=== PATIENT | female | born 1970 | race Caucasian/White ===

== ENCOUNTER 2016-09-16 08:47 | Emergency (ER) | payer OTHER ==
[2016-09-16] MEDS ORDERED: MORPHINE 4 MG/ML 1ML SYRINGE As Ordered ONE (10:23)
[2016-09-16] MEDS ORDERED: ONDANSETRON 4MG/2ML VIAL (J2405) As Ordered ONE (10:23)
[2016-09-16] MEDS ORDERED: ACETAMINOPHEN 325 MG TAB As Ordered ONE (10:33)
[2016-09-16 10:40] LABS: BASO % 0.5 % (0.0-1.0); EOS # 0.2 K/mm3 (0.0-0.50); LARGE UNSTAINED CELL # 0.1 K/mm3 (0.0-0.4); LARGE UNSTAINED CELL % 1.5 % (0.0-4.0); LYMPH # 1.9 K/mm3 (1.5-4.5); LYMPH % 19.8 % (24.0-44.0); MEAN CORPUSCULAR HEMOGLOBIN 30.4 pg (27.0-33.0); MEAN CORPUSCULAR HGB CONC 32.6 g/dl (32.0-36.5); MEAN CORPUSCULAR VOLUME 93.4 fl (80.0-96.0); MONO # 0.5 K/mm3 (0.0-0.8); MONO % 5.1 % (0.0-5.0); NEUTROPHILS # 6.7 K/mm3 (1.8-7.7); NEUTROPHILS % 71.1 % (36.0-66.0); PLATELET COUNT, AUTOMATED 236 k/mm3 (150-450); RED CELL DISTRIBUTION WIDTH 13.1 % (11.5-14.5); WHITE BLOOD COUNT 9.4 K/mm3 (4.0-10.0)
[2016-09-16 11:01] LABS: ALBUMIN 3.8 GM/DL (3.2-5.2); ALBUMIN/GLOBULIN RATIO 1.03 (1.00-1.93); ALKALINE PHOSPHATASE 84 U/L (45-117); ALT/SGPT 33 U/L (12-78); ANION GAP 7 MEQ/L (8-16); AST/SGOT 23 U/L (15-37); BILIRUBIN,DIRECT < 0.1 MG/DL (0.0-0.2); BILIRUBIN,TOTAL 0.3 MG/DL (0.2-1.0); BLOOD UREA NITROGEN 11 MG/DL (7-18); CALCIUM LEVEL 9.2 MG/DL (8.5-10.1); CARBON DIOXIDE LEVEL 30 MEQ/L (21-32); CHLORIDE LEVEL 106 MEQ/L (98-107); GLOMERULAR FILTRATION RATE > 60.0 (>58); GLUCOSE, FASTING 93 MG/DL (70-105); POTASSIUM SERUM 3.7 MEQ/L (3.5-5.1); SODIUM LEVEL 143 MEQ/L (136-145); TOTAL PROTEIN 7.5 GM/DL (6.4-8.2)
[2016-09-16 11:02] LABS: CALCIUM OXALATE CRYSTALS LARGE
--- NOTE | 2016-09-16 11:10 | REP ---
CT study of the abdomen and pelvis without IV or oral contrast: History: Right flank pain. Hematuria. Findings: Digital business support administrator radiograph shows an unremarkable bowel gas pattern. The lung bases are clear. The liver and the spleen are normal in size and homogeneous in texture. No adrenal lesion is seen. Pancreas and gallbladder are unremarkable. There is no evidence of intrarenal calculus, mass or cyst. There is mild to moderate right-sided hydronephrosis and right hydroureter is seen. This can be traced into the pelvis where there is a obstructing calculus in the distal mid ureter measuring 3 mm in greatest diameter. There is periureteral swelling at the level of the calculus which is at mid pelvis. No bladder or left ureteral calculus is seen. Small and large intestinal bowel loops are unremarkable. A normal appendix is seen. No pelvic mass or adenopathy is seen. No uterine or ovarian abnormality is observed. The uterus is somewhat retroverted. Impression: Moderate right-sided hydronephrosis and hydroureter due to an obstructing 3 mm distal ureteral calculus. Otherwise unremarkable study. Normal appendix seen. Signed by Eric Sneed MD 09/16/2016 12:24 P
--- NOTE | 2016-09-16 11:48 | EDDOCDS ---
Physician Documentation [facility] Name: Violeta Adorno Age: 45 yrs Sex: Female : 1970 Arrival Date: 09/16/2016 Time: 08:47 Bed I6 / Private MD: Disposition: 09/16/16 11:28 Discharged to Home/Self Care. Impression: Urinary tract infection, site not specified, Nausea with vomiting, unspecified, Lower abdominal pain, unspecified - rlq, Calculus of ureter - right. - Condition is Stable. - Discharge Instructions: Kidney Stones, Nausea and Vomiting, Urinary Tract Infection. - Prescriptions for Cipro 500 mg Oral Tablet - take 1 tablet by ORAL route every 12 hours; 14 tablet. Naprosyn 500 mg Oral Tablet - take 1 tablet by ORAL route every 12 hours As needed take with food; 30 tablet. Arcadia 5- 325 mg Oral Tablet - take 1 tablet by ORAL route every 6 hours As needed MDD: 4 tabs; may cause drowsiness. do not take if working/driving/operating machinery; 20 tablet. Reglan 10 mg Oral Tablet - take 1 tablet by ORAL route every 6 hours As needed take 30 minutes before meals and at bedtime; 20 tablet. Flomax 0.4 mg Oral Capsule, Sust. Release 24 hr - take 1 capsule by ORAL route once daily 1/2 hour following the same meal each day; 30 capsule. - Medication Reconciliation, Local Pharmacy Hours form. - Follow up: Emergency Department; When: As needed; Reason: Worsening of conditions. [facility]; When: Call to arrange an appointment; Reason: Recheck today's complaints, Continuance of care, To establish care. Follow up: [facility]; When: Call to arrange an appointment; Reason: Wound/Symptom Recheck, Further diagnostic work-up, Recheck today's complaints, Continuance of care, To establish care. - Problem is new. - Symptoms have improved. Historical: - Allergies: No known drug Allergies; - Home Meds: 1. multivitamin Oral cap daily 2. ibuprofen 200 mg Oral cap 2 caps every 4 hours (Last dose: 09/16/2016 08:00) - PMHx: none; - PSHx: ? kidney surgery as a baby; - Social history: Smoking status: Patient uses tobacco products, heavy tobacco smoker. No barriers to communication noted, The patient speaks fluent Armenian, Speaks appropriately for age. - Family history: Not pertinent. - : The pt / caregiver states he / she is not on anticoagulants. Home medication list is obtained from the patient. - Exposure Risk Screening:: None identified. 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 2 in. (157.48 cm); Pain 4/10; 11:16 BP 139 / 67; Pulse 72; Resp 18; Temp 97.6(O); Pulse Ox 98% on R/A; Pain 8/10; nb2 09:16 Body Mass Index 22.86 (56.70 kg, 157.48 cm) hs1 MDM: 09:23 UCG by Nursing ordered. dt4 09:23 Urinalysis Ordered. EDMS 09:23 Urine Culture Ordered. EDMS 10:04 Ondansetron 4 mg IVP once ordered. dt4 10:04 IV Saline Lock ordered. dt4 10:04 Undress patient appropriately for examination ordered. dt4 10:04 morphine 4 mg IVP once ordered. dt4 10:04 NS 0.9% 500 ml IV at bolus once ordered. dt4 10:05 Basic Metabolic Profile Ordered. EDMS 10:05 CBC with Diff Ordered. EDMS 10:05 Liver Profile Ordered. EDMS 10:05 CRP Ordered. EDMS 10:06 CT ABD & PELVIS: No Contrast Ordered. EDMS 10:06 NOTHING BY MOUTH+DIET ordered. EDMS 10:15 Financial registration complete. lg 10:32 Acetaminophen Tablet 975 mg PO once ordered. dt4 10:46 [facility] Payment Agreement was scanned into [employer] and attached to record. Point of Care Testing: Urine : 10:12 hCG Reading: Negative; Control Reading: Positive; kcs Ranges: Administered Medications: 10:28 Drug: Ondansetron 4 mg [ondansetron HCl 2 mg/mL intravenous solution (2 mL)] Route: kr3 IVP; Site: right antecubital; 10:28 Drug: NS 0.9% 500 ml [sodium chloride 0.9 % intravenous solution] Route: IV; Rate: kr3 bolus; Site: right antecubital; 10:59 Follow up: IV Status: Completed infusion; IV Intake: 500ml kr3 11:40 Follow up: IV Status: Completed infusion rs3 10:32 Not Given (Other Intervention Used; pt driving. ): morphine 4 mg IVP once dt4 10:35 Drug: Acetaminophen 975 mg [acetaminophen 325 mg tablet (3 tabs)] Route: PO; kr3 10:59 Follow up: Response: No significant change. kr3 Signatures: Dispatcher [employer] EDSonia Sánchez, Reg Reg lg Sahra Cavazos RN RN kr3 Sylvia Renner RN RN rs3 Stefanie Harmon RN RN hs1 Jia Aragon PA-C PA-C dt4 The chart was reviewed and I authenticate all verbal orders and agree with the evaluation and treatment provided.Attachments: 10:46 [facility] Payment Agreement lg MTDD
--- NOTE | 2016-09-16 11:49 | EDDOCDS ---
Nurse's Notes [facility] Name: Violeta Adorno Age: 45 yrs Sex: Female : 1970 Arrival Date: 09/16/2016 Time: 08:47 Bed I6 / 28 Private MD: Diagnosis: Urinary tract infection, site not specified;Nausea with vomiting, unspecified;Lower abdominal pain, unspecified-rlq;Calculus of ureter-right Presentation: 09/16 09:11 Presenting complaint: Patient states: noticed blood in urine yesterday. Patient states hs1 cramping today in lower abdomen and now up into rib area. Patient reports pain all on right side. Patient also states has not had menses since June and is probably menopausal. Patient reports trying to see OBGYN and cannot be seen until November. Adult Sepsis Screening: The patient does not have new or worsening altered mentation. Patient's respiratory rate is less than 22. Systolic blood pressure is greater than 100. Patient has a qSOFA score of 0- Negative Sepsis Screen. Suicide/Homicide risk assessment- the patient denies having any suicidal and/or homicidal ideations and does not present with any other emotional, behavioral or mental health complaints. 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 Transition of care: patient was not received from another setting of care. 09:11 Acuity: JOAO Level 3 hs1 09:11 Method Of Arrival: Walkin/Carried/Asstd hs1 Triage Assessment: 09:14 General: Appears in no apparent distress, uncomfortable, Behavior is appropriate for hs1 age, cooperative. Pain: Location: suprapubic area, anterior aspect of right lateral abdomen and right lower quadrant Pain currently is 4 out of 10 on a pain scale. HIV screening NA for this visit Offered previously. GI: Reports cramping, nausea. 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 multivitamin Oral cap daily 2. ibuprofen 200 mg Oral cap 2 caps every 4 hours (Last dose: 09/16/2016 08:00) - PMHx: none; - PSHx: ? kidney surgery as a baby; - Social history: Smoking status: Patient uses tobacco products, heavy tobacco smoker. No barriers to communication noted, The patient speaks fluent Serbian, Speaks appropriately for age. - Family history: Not pertinent. - : The pt / caregiver states he / she is not on anticoagulants. Home medication list is obtained from the patient. - Exposure Risk Screening:: None identified. Screenin:27 Screening information is obtained from the patient. Fall risk: No risks identified. kr3 Assistance ADL's: requires no assistance with activities of daily living. Abuse/DV Screen: The patient / caregiver reports he/she is: not in a situation that causes fear, pain or injury. Nutritional screening: No deficits noted. Advance Directives: Currently, there is no health care proxy. home support is adequate. Assessment: 10:27 General: Appears uncomfortable, Behavior is cooperative. Pain: Location: right flank kr3 and right lower quadrant. Neurological: Level of Consciousness is awake, alert. Respiratory: Respiratory effort is even, unlabored. GI: Reports nausea. : Reports hematuria Denies burning with urination, urinary frequency, urgency. Derm: Skin is normal. 11:02 Reassessment: pain 6/10 with intermittent increases to 10/10. kr3 11:47 Reassessment: Patient appears in no apparent distress at this time. Patient states rs3 feeling better. Patient states symptoms have improved. Vital Signs: 09:16 BP 126 / 80; Pulse 86; Resp 18; Temp 96.8(O); Pulse Ox 98% ; Weight 56.7 kg; Height 5 hs1 ft. 2 in. (157.48 cm); Pain 4/10; 11:16 BP 139 / 67; Pulse 72; Resp 18; Temp 97.6(O); Pulse Ox 98% on R/A; Pain 8/10; nb2 09:16 Body Mass Index 22.86 (56.70 kg, 157.48 cm) 1 Vitals: 09:16 Log In Time: September 16, 2016 at 08:50. hs1 ED Course: 08:49 Patient visited by Zen Vargas. jp5 08:49 Patient moved to Waiting jp5 09:13 Triage Initiated hs1 09:17 Patient moved to Pre RCE hs1 09:51 [facility] dt4 09:51 Vivienne Caraballo MD is Attending Physician. dt4 09:51 Patient visited by Jia Aragon PA-C. dt4 09:51 Patient moved to Triage 2 dwg 10:13 Patient moved to I6 / 28 dwg 10:23 CRP Sent. kr3 10:23 Basic Metabolic Profile Sent. kr3 10:23 CBC with Diff Sent. kr3 10:23 Liver Profile Sent. kr3 10:27 Patient visited by Sahra Cavazos RN. kr3 10:27 The patient / caregiver is instructed regarding the plan of care and ED course. Patient rupesh has correct armband on for positive identification. Placed in gown. Bed in low position. Call light in reach. Side rails up X 1. 10:28 Inserted saline lock: 20 gauge in right antecubital area and blood collected. The kr3 patient tolerated the procedure well. 10:46 [facility] Payment Agreement was scanned into [employer] and attached to record. lg 10:59 Patient visited by Sahra Cavazos RN. kr3 11:02 No procedures done that require assistance. kr3 11:16 Patient visited by Laura Nieves. nb2 11:27 [facility] is Referral Physician. dt4 11:27 [facility] is Referral Physician. dt4 11:45 CT ABD & PELVIS: No Contrast Returned. EDMS Administered Medications: 10:28 Drug: Ondansetron 4 mg [ondansetron HCl 2 mg/mL intravenous solution (2 mL)] Route: kr3 IVP; Site: right antecubital; 10:28 Drug: NS 0.9% 500 ml [sodium chloride 0.9 % intravenous solution] Route: IV; Rate: kr3 bolus; Site: right antecubital; 10:59 Follow up: IV Status: Completed infusion; IV Intake: 500ml kr3 11:40 Follow up: IV Status: Completed infusion rs3 10:32 Not Given (Other Intervention Used; pt driving. ): morphine 4 mg IVP once dt4 10:35 Drug: Acetaminophen 975 mg [acetaminophen 325 mg tablet (3 tabs)] Route: PO; kr3 10:59 Follow up: Response: No significant change. kr3 Point of Care Testing: Urine : 10:12 hCG Reading: Negative; Control Reading: Positive; kcs Ranges: Intake: 10:59 IV: 500.00ml; Total: 500.00ml. kr3 Order Results: Lab Order: Urinalysis; SPEC'M 09/16/16 10:11 Test: APPEARANCE, URINE; Value: CLOUDY; Range: CLEAR; Abnormal: Above high normal; Status: F Test: COLOR, URINE; Value: ALEXX; Range: YELLOW; Status: F Test: PH,URINE; Value: 5.0; Range: 5.0-9.0; Units: UNITS; Status: F Test: SPECIFIC GRAVITY URINE AUTO; Value: 1.027; Range: 1.002-1.035; Status: F Test: PROTEIN, URINE AUTO; Value: 2+; Range: NEGATIVE; Abnormal: Above high normal; Units: mg/dL; Status: F Test: GLUCOSE, URINE (UA) AUTO; Value: NEGATIVE; Range: NEGATIVE; Units: mg/dL; Status: F Test: KETONE, URINE AUTO; Value: TRACE; Range: NEGATIVE; Abnormal: Above high normal; Units: mg/dL; Status: F Test: UROBILINOGEN, URINE AUTO; Value: 0.2; Range: 0.0-2.0; Units: mg/dL; Status: F Test: BILIRUBIN, URINE AUTO; Value: NEGATIVE; Range: NEGATIVE; Status: F Test: NITRITE, URINE AUTO; Value: NEGATIVE; Range: NEGATIVE; Status: F Test: LEUKOCYTE ESTERASE, URINE AUTO; Value: NEGATIVE; Range: NEGATIVE; Status: F Test: BLOOD, URINE BLOOD; Value: 3+; Range: NEGATIVE; Abnormal: Above high normal; Status: F Test: WBC, URINE AUTO; Value: TNTC; Range: 0-3; Abnormal: Above high normal; Units: /HPF; Status: F Test: RBC, URINE AUTO; Value: TNTC; Range: 0-3; Abnormal: Above high normal; Units: /HPF; Status: F Test: BACTERIA, URINE AUTO; Value: NEGATIVE; Range: NEGATIVE; Status: F Test: SQUAMOUS EPITHELIAL CELL UR AU; Value: 3; Range: 0-6; Units: /HPF; Status: F Test: MUCUS, URINE; Value: LARGE; Range: NEGATIVE; Status: F Test: HYALINE CAST, URINE AUTO; Value: 0; Range: 0-1; Units: /LPF; Status: F Test: CALCIUM OXALATE CRYSTALS; Value: LARGE; Range: NONE; Status: F Test: URIC ACID CRYSTALS; Value: SMALL; Range: NONE; Status: F Lab Order: Basic Metabolic Profile; SPEC'M 09/16/16 10:21 Test: GLUCOSE, FASTING; Value: 93; Range: 70-105; Units: MG/DL; Status: F Test: BLOOD UREA NITROGEN; Value: 11; Range: 7-18; Units: MG/DL; Status: F Test: CREATININE FOR GFR; Value: 0.70; Range: 0.55-1.02; Units: MG/DL; Status: F Test: GLOMERULAR FILTRATION RATE; Value: > 60.0; Range: >58; Status: F Test: SODIUM LEVEL; Value: 143; Range: 136-145; Units: MEQ/L; Status: F Test: POTASSIUM SERUM; Value: 3.7; Range: 3.5-5.1; Units: MEQ/L; Status: F Test: CHLORIDE LEVEL; Value: 106; Range: 98-107; Units: MEQ/L; Status: F Test: CARBON DIOXIDE LEVEL; Value: 30; Range: 21-32; Units: MEQ/L; Status: F Test: ANION GAP; Value: 7; Range: 8-16; Abnormal: Below low normal; Units: MEQ/L; Status: F Test: CALCIUM LEVEL; Value: 9.2; Range: 8.5-10.1; Units: MG/DL; Status: F Test Note: ; Units are mL/min/1.73 m2 Chronic Kidney Disease Staging per NKF: Stage I & II GFR >=60 Normal to Mildly Decreased Stage III GFR 30-59 Moderately Decreased Stage IV GFR 15-29 Severely Decreased Stage V GFR <15 Very Little GFR Left ESRD GFR <15 on TUMBLER DYEING MACHINE OPERATOR Lab Order: CBC with Diff; SPEC09/16/16 10:21 Test: WHITE BLOOD COUNT; Value: 9.4; Range: 4.0-10.0; Units: K/mm3; Status: F Test: RED BLOOD COUNT; Value: 4.72; Range: 4.00-5.40; Units: M/mm3; Status: F Test: HEMOGLOBIN; Value: 14.3; Range: 12.0-16.0; Units: g/dl; Status: F Test: HEMATOCRIT; Value: 44.0; Range: 36.0-47.0; Units: %; Status: F Test: MEAN CORPUSCULAR VOLUME; Value: 93.4; Range: 80.0-96.0; Units: fl; Status: F Test: MEAN CORPUSCULAR HEMOGLOBIN; Value: 30.4; Range: 27.0-33.0; Units: pg; Status: F Test: MEAN CORPUSCULAR HGB CONC; Value: 32.6; Range: 32.0-36.5; Units: g/dl; Status: F Test: RED CELL DISTRIBUTION WIDTH; Value: 13.1; Range: 11.5-14.5; Units: %; Status: F Test: PLATELET COUNT, AUTOMATED; Value: 236; Range: 150-450; Units: k/mm3; Status: F Test: NEUTROPHILS %; Value: 71.1; Range: 36.0-66.0; Abnormal: Above high normal; Units: %; Status: F Test: LYMPH %; Value: 19.8; Range: 24.0-44.0; Abnormal: Below low normal; Units: %; Status: F Test: MONO %; Value: 5.1; Range: 0.0-5.0; Abnormal: Above high normal; Units: %; Status: F Test: EOS %; Value: 2.0; Range: 0.0-3.0; Units: %; Status: F Test: BASO %; Value: 0.5; Range: 0.0-1.0; Units: %; Status: F Test: LARGE UNSTAINED CELL %; Value: 1.5; Range: 0.0-4.0; Units: %; Status: F Test: NEUTROPHILS #; Value: 6.7; Range: 1.8-7.7; Units: K/mm3; Status: F Test: LYMPH #; Value: 1.9; Range: 1.5-4.5; Units: K/mm3; Status: F Test: MONO #; Value: 0.5; Range: 0.0-0.8; Units: K/mm3; Status: F Test: EOS #; Value: 0.2; Range: 0.0-0.50; Units: K/mm3; Status: F Test: BASO #; Value: 0.0; Range: 0.0-0.2; Units: K/mm3; Status: F Test: LARGE UNSTAINED CELL #; Value: 0.1; Range: 0.0-0.4; Units: K/mm3; Status: F Lab Order: Liver Profile; SPEC'M 09/16/16 10:21 Test: AST/SGOT; Value: 23; Range: 15-37; Units: U/L; Status: F Test: ALT/SGPT; Value: 33; Range: 12-78; Units: U/L; Status: F Test: ALKALINE PHOSPHATASE; Value: 84; Range: 45-117; Units: U/L; Status: F Test: BILIRUBIN,TOTAL; Value: 0.3; Range: 0.2-1.0; Units: MG/DL; Status: F Test: BILIRUBIN,DIRECT; Value: < 0.1; Range: 0.0-0.2; Units: MG/DL; Status: F Test: TOTAL PROTEIN; Value: 7.5; Range: 6.4-8.2; Units: GM/DL; Status: F Test: ALBUMIN; Value: 3.8; Range: 3.2-5.2; Units: GM/DL; Status: F Test: ALBUMIN/GLOBULIN RATIO; Value: 1.03; Range: 1.00-1.93; Status: F Lab Order: CRP; SPEC'M 09/16/16 10:21 Test: C REACTIVE PROTEIN QUANTITATIV; Value: < 0.30; Range: 0.00-0.30; Units: MG/DL; Status: F Radiology Order: CT ABD & PELVIS: No Contrast Test: CT ABD & PELVIS: No Contrast REASON FOR EXAMINATION: right flank pain, hematuria; CT study of the abdomen and pelvis without IV or oral contrast:; ; History: Right flank pain. Hematuria.; ; Findings: Digital public policy mediator radiograph shows an unremarkable bowel gas pattern. The; lung bases are clear. The liver and the spleen are normal in size and; homogeneous in texture. No adrenal lesion is seen. Pancreas and gallbladder are; unremarkable.; ; There is no evidence of intrarenal calculus, mass or cyst. There is mild to; moderate right-sided hydronephrosis and right hydroureter is seen. This can be; traced into the pelvis where there is a obstructing calculus in the distal mid; ureter measuring 3 mm in greatest diameter. There is periureteral swelling at; the level of the calculus which is at mid pelvis. No bladder or left ureteral; calculus is seen. Small and large intestinal bowel loops are unremarkable. A; normal appendix is seen. No pelvic mass or adenopathy is seen. No uterine or; ovarian abnormality is observed. The uterus is somewhat retroverted.; ; Impression:; ; Moderate right-sided hydronephrosis and hydroureter due to an obstructing 3 mm; distal ureteral calculus. Otherwise unremarkable study. Normal appendix seen.; ; ; ; ; Unreviewed; Outcome: 10:29 CT Study completed. kr3 11:28 Discharge ordered by Provider. dt4 11:41 Discharge Assessment: patient administered narcotics - no. The following High Risk rs3 Discharge criteria are identified: None. Discharged to home ambulatory. Condition: stable. Discharge instructions given to patient, Instructed on discharge instructions, follow up and referral plans. medication usage, Demonstrated understanding of instructions, medications, Patient was not receptive of discharge instructions. Property :Personal belongings accompany Pt. 11:47 Patient left the ED. rs3 Signatures: Dispatcher [employer] EDMS Suad Arthur, RN RN Brandon Payne RN RN Sonia Malhotra, Royal Reg Sahra Cavazos RN RN kr3 Sylvia Renner RN RN rs3 Stefanie Harmon RN RN hs1 Jia Aragon PA-C PASantino dt4 Zen Vargas jp5 Laura Nieves2 MTDD
--- NOTE | 2016-09-18 12:48 | EDDOCDS ---
Nurse's Notes [facility] Name: Violeta Adorno Age: 45 yrs Sex: Female : 1970 Arrival Date: 09/16/2016 Time: 08:47 Bed I6 / 28 Private MD: Diagnosis: Urinary tract infection, site not specified;Nausea with vomiting, unspecified;Lower abdominal pain, unspecified-rlq;Calculus of ureter-right Presentation: 09/16 09:11 Presenting complaint: Patient states: noticed blood in urine yesterday. Patient states hs1 cramping today in lower abdomen and now up into rib area. Patient reports pain all on right side. Patient also states has not had menses since June and is probably menopausal. Patient reports trying to see OBGYN and cannot be seen until November. Adult Sepsis Screening: The patient does not have new or worsening altered mentation. Patient's respiratory rate is less than 22. Systolic blood pressure is greater than 100. Patient has a qSOFA score of 0- Negative Sepsis Screen. Suicide/Homicide risk assessment- the patient denies having any suicidal and/or homicidal ideations and does not present with any other emotional, behavioral or mental health complaints. Status: Patient is not a customer service teller or dependent. Transition of care: patient was not received from another setting of care. 09:11 Acuity: JOAO Level 3 hs1 09:11 Method Of Arrival: Walkin/Carried/Asstd hs1 Triage Assessment: 09:14 General: Appears in no apparent distress, uncomfortable, Behavior is appropriate for hs1 age, cooperative. Pain: Location: suprapubic area, anterior aspect of right lateral abdomen and right lower quadrant Pain currently is 4 out of 10 on a pain scale. HIV screening NA for this visit Offered previously. GI: Reports cramping, nausea. 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 multivitamin Oral cap daily 2. ibuprofen 200 mg Oral cap 2 caps every 4 hours (Last dose: 09/16/2016 08:00) - PMHx: none; - PSHx: ? kidney surgery as a baby; - Social history: Smoking status: Patient uses tobacco products, heavy tobacco smoker. No barriers to communication noted, The patient speaks fluent Albanian, Speaks appropriately for age. - Family history: Not pertinent. - : The pt / caregiver states he / she is not on anticoagulants. Home medication list is obtained from the patient. - Exposure Risk Screening:: None identified. Screenin:27 Screening information is obtained from the patient. Fall risk: No risks identified. kr3 Assistance ADL's: requires no assistance with activities of daily living. Abuse/DV Screen: The patient / caregiver reports he/she is: not in a situation that causes fear, pain or injury. Nutritional screening: No deficits noted. Advance Directives: Currently, there is no health care proxy. home support is adequate. Assessment: 10:27 General: Appears uncomfortable, Behavior is cooperative. Pain: Location: right flank kr3 and right lower quadrant. Neurological: Level of Consciousness is awake, alert. Respiratory: Respiratory effort is even, unlabored. GI: Reports nausea. : Reports hematuria Denies burning with urination, urinary frequency, urgency. Derm: Skin is normal. 11:02 Reassessment: pain 6/10 with intermittent increases to 10/10. kr3 11:47 Reassessment: Patient appears in no apparent distress at this time. Patient states rs3 feeling better. Patient states symptoms have improved. Vital Signs: 09:16 BP 126 / 80; Pulse 86; Resp 18; Temp 96.8(O); Pulse Ox 98% ; Weight 56.7 kg; Height 5 hs1 ft. 2 in. (157.48 cm); Pain 4/10; 11:16 BP 139 / 67; Pulse 72; Resp 18; Temp 97.6(O); Pulse Ox 98% on R/A; Pain 8/10; nb2 09:16 Body Mass Index 22.86 (56.70 kg, 157.48 cm) 1 Vitals: 09:16 Log In Time: September 16, 2016 at 08:50. hs1 ED Course: 08:49 Patient visited by Zen Vargas. jp5 08:49 Patient moved to Waiting jp5 09:13 Triage Initiated hs1 09:17 Patient moved to Pre RCE hs1 09:51 [facility]-C [facility] dt4 09:51 Vivienne Caraballo MD is Attending Physician. dt4 09:51 Patient visited by Jia Aragon PA-C. dt4 09:51 Patient moved to Triage 2 dwg 10:13 Patient moved to I6 / 28 dwg 10:23 CRP Sent. kr3 10:23 Basic Metabolic Profile Sent. kr3 10:23 CBC with Diff Sent. kr3 10:23 Liver Profile Sent. kr3 10:27 Patient visited by Sahra Cavazos RN. kr3 10:27 The patient / caregiver is instructed regarding the plan of care and ED course. Patient rupesh has correct armband on for positive identification. Placed in gown. Bed in low position. Call light in reach. Side rails up X 1. 10:28 Inserted saline lock: 20 gauge in right antecubital area and blood collected. The celestina3 patient tolerated the procedure well. 10:46 [place] [place] was scanned into [employer] and attached to record. lg 10:59 Patient visited by Sahra Cavazos RN. kr3 11:02 No procedures done that require assistance. kr3 11:16 Patient visited by Laura Nieves. nb2 11:27 [facility] is Referral Physician. dt4 11:27 Moe Cheema is Referral Physician. dt4 11:45 CT ABD & PELVIS: No Contrast Returned. EDMS 14:50 T-Sheet-- Draft Copy was scanned into [employer] and attached to record. gb 14:50 Radiology Report was scanned into [employer] and attached to record. gb Administered Medications: 10:28 Drug: Ondansetron 4 mg [ondansetron HCl 2 mg/mL intravenous solution (2 mL)] Route: kr3 IVP; Site: right antecubital; 10:28 Drug: NS 0.9% 500 ml [sodium chloride 0.9 % intravenous solution] Route: IV; Rate: kr3 bolus; Site: right antecubital; 10:59 Follow up: IV Status: Completed infusion; IV Intake: 500ml kr3 11:40 Follow up: IV Status: Completed infusion rs3 10:32 Not Given (Other Intervention Used; pt driving. ): morphine 4 mg IVP once dt4 10:35 Drug: Acetaminophen 975 mg [acetaminophen 325 mg tablet (3 tabs)] Route: PO; kr3 10:59 Follow up: Response: No significant change. kr3 Point of Care Testing: Urine : 10:12 hCG Reading: Negative; Control Reading: Positive; kcs Ranges: Intake: 10:59 IV: 500.00ml; Total: 500.00ml. kr3 Order Results: Lab Order: Urinalysis; SPEC'M 09/16/16 10:11 Test: APPEARANCE, URINE; Value: CLOUDY; Range: CLEAR; Abnormal: Above high normal; Status: F Test: COLOR, URINE; Value: ALEXX; Range: YELLOW; Status: F Test: PH,URINE; Value: 5.0; Range: 5.0-9.0; Units: UNITS; Status: F Test: SPECIFIC GRAVITY URINE AUTO; Value: 1.027; Range: 1.002-1.035; Status: F Test: PROTEIN, URINE AUTO; Value: 2+; Range: NEGATIVE; Abnormal: Above high normal; Units: mg/dL; Status: F Test: GLUCOSE, URINE (UA) AUTO; Value: NEGATIVE; Range: NEGATIVE; Units: mg/dL; Status: F Test: KETONE, URINE AUTO; Value: TRACE; Range: NEGATIVE; Abnormal: Above high normal; Units: mg/dL; Status: F Test: UROBILINOGEN, URINE AUTO; Value: 0.2; Range: 0.0-2.0; Units: mg/dL; Status: F Test: BILIRUBIN, URINE AUTO; Value: NEGATIVE; Range: NEGATIVE; Status: F Test: NITRITE, URINE AUTO; Value: NEGATIVE; Range: NEGATIVE; Status: F Test: LEUKOCYTE ESTERASE, URINE AUTO; Value: NEGATIVE; Range: NEGATIVE; Status: F Test: BLOOD, URINE BLOOD; Value: 3+; Range: NEGATIVE; Abnormal: Above high normal; Status: F Test: WBC, URINE AUTO; Value: TNTC; Range: 0-3; Abnormal: Above high normal; Units: /HPF; Status: F Test: RBC, URINE AUTO; Value: TNTC; Range: 0-3; Abnormal: Above high normal; Units: /HPF; Status: F Test: BACTERIA, URINE AUTO; Value: NEGATIVE; Range: NEGATIVE; Status: F Test: SQUAMOUS EPITHELIAL CELL UR AU; Value: 3; Range: 0-6; Units: /HPF; Status: F Test: MUCUS, URINE; Value: LARGE; Range: NEGATIVE; Status: F Test: HYALINE CAST, URINE AUTO; Value: 0; Range: 0-1; Units: /LPF; Status: F Test: CALCIUM OXALATE CRYSTALS; Value: LARGE; Range: NONE; Status: F Test: URIC ACID CRYSTALS; Value: SMALL; Range: NONE; Status: F Lab Order: Urine Culture; SPEC09/16/16 10:11 Test: URINE CULTURE; Value: <EXTERNAL COMMENT eCWMed> FULL REPORT IN LAB NOTES (eCW and Medent).; Status: F Test: URINE CULTURE; Value: URINE CULTURE RESULT SPECIMEN APPEARS CONTAMINATED; Status: F Lab Order: Basic Metabolic Profile; SPEC'09/16/16 10:21 Test: GLUCOSE, FASTING; Value: 93; Range: 70-105; Units: MG/DL; Status: F Test: BLOOD UREA NITROGEN; Value: 11; Range: 7-18; Units: MG/DL; Status: F Test: CREATININE FOR GFR; Value: 0.70; Range: 0.55-1.02; Units: MG/DL; Status: F Test: GLOMERULAR FILTRATION RATE; Value: > 60.0; Range: >58; Status: F Test: SODIUM LEVEL; Value: 143; Range: 136-145; Units: MEQ/L; Status: F Test: POTASSIUM SERUM; Value: 3.7; Range: 3.5-5.1; Units: MEQ/L; Status: F Test: CHLORIDE LEVEL; Value: 106; Range: 98-107; Units: MEQ/L; Status: F Test: CARBON DIOXIDE LEVEL; Value: 30; Range: 21-32; Units: MEQ/L; Status: F Test: ANION GAP; Value: 7; Range: 8-16; Abnormal: Below low normal; Units: MEQ/L; Status: F Test: CALCIUM LEVEL; Value: 9.2; Range: 8.5-10.1; Units: MG/DL; Status: F Test Note: ; Units are mL/min/1.73 m2 Chronic Kidney Disease Staging per NKF: Stage I & II GFR >=60 Normal to Mildly Decreased Stage III GFR 30-59 Moderately Decreased Stage IV GFR 15-29 Severely Decreased Stage V GFR <15 Very Little GFR Left ESRD GFR <15 on HOT WALKER Lab Order: CBC with Diff; SPEC'09/16/16 10:21 Test: WHITE BLOOD COUNT; Value: 9.4; Range: 4.0-10.0; Units: K/mm3; Status: F Test: RED BLOOD COUNT; Value: 4.72; Range: 4.00-5.40; Units: M/mm3; Status: F Test: HEMOGLOBIN; Value: 14.3; Range: 12.0-16.0; Units: g/dl; Status: F Test: HEMATOCRIT; Value: 44.0; Range: 36.0-47.0; Units: %; Status: F Test: MEAN CORPUSCULAR VOLUME; Value: 93.4; Range: 80.0-96.0; Units: fl; Status: F Test: MEAN CORPUSCULAR HEMOGLOBIN; Value: 30.4; Range: 27.0-33.0; Units: pg; Status: F Test: MEAN CORPUSCULAR HGB CONC; Value: 32.6; Range: 32.0-36.5; Units: g/dl; Status: F Test: RED CELL DISTRIBUTION WIDTH; Value: 13.1; Range: 11.5-14.5; Units: %; Status: F Test: PLATELET COUNT, AUTOMATED; Value: 236; Range: 150-450; Units: k/mm3; Status: F Test: NEUTROPHILS %; Value: 71.1; Range: 36.0-66.0; Abnormal: Above high normal; Units: %; Status: F Test: LYMPH %; Value: 19.8; Range: 24.0-44.0; Abnormal: Below low normal; Units: %; Status: F Test: MONO %; Value: 5.1; Range: 0.0-5.0; Abnormal: Above high normal; Units: %; Status: F Test: EOS %; Value: 2.0; Range: 0.0-3.0; Units: %; Status: F Test: BASO %; Value: 0.5; Range: 0.0-1.0; Units: %; Status: F Test: LARGE UNSTAINED CELL %; Value: 1.5; Range: 0.0-4.0; Units: %; Status: F Test: NEUTROPHILS #; Value: 6.7; Range: 1.8-7.7; Units: K/mm3; Status: F Test: LYMPH #; Value: 1.9; Range: 1.5-4.5; Units: K/mm3; Status: F Test: MONO #; Value: 0.5; Range: 0.0-0.8; Units: K/mm3; Status: F Test: EOS #; Value: 0.2; Range: 0.0-0.50; Units: K/mm3; Status: F Test: BASO #; Value: 0.0; Range: 0.0-0.2; Units: K/mm3; Status: F Test: LARGE UNSTAINED CELL #; Value: 0.1; Range: 0.0-0.4; Units: K/mm3; Status: F Lab Order: Liver Profile; SPEC'M 09/16/16 10:21 Test: AST/SGOT; Value: 23; Range: 15-37; Units: U/L; Status: F Test: ALT/SGPT; Value: 33; Range: 12-78; Units: U/L; Status: F Test: ALKALINE PHOSPHATASE; Value: 84; Range: 45-117; Units: U/L; Status: F Test: BILIRUBIN,TOTAL; Value: 0.3; Range: 0.2-1.0; Units: MG/DL; Status: F Test: BILIRUBIN,DIRECT; Value: < 0.1; Range: 0.0-0.2; Units: MG/DL; Status: F Test: TOTAL PROTEIN; Value: 7.5; Range: 6.4-8.2; Units: GM/DL; Status: F Test: ALBUMIN; Value: 3.8; Range: 3.2-5.2; Units: GM/DL; Status: F Test: ALBUMIN/GLOBULIN RATIO; Value: 1.03; Range: 1.00-1.93; Status: F Lab Order: CRP; SPEC'M 09/16/16 10:21 Test: C REACTIVE PROTEIN QUANTITATIV; Value: < 0.30; Range: 0.00-0.30; Units: MG/DL; Status: F Radiology Order: CT ABD & PELVIS: No Contrast Test: CT ABD & PELVIS: No Contrast REASON FOR EXAMINATION: right flank pain, hematuria; CT study of the abdomen and pelvis without IV or oral contrast:; ; History: Right flank pain. Hematuria.; ; Findings: Digital air bag buffer radiograph shows an unremarkable bowel gas pattern. The; lung bases are clear. The liver and the spleen are normal in size and; homogeneous in texture. No adrenal lesion is seen. Pancreas and gallbladder are; unremarkable.; ; There is no evidence of intrarenal calculus, mass or cyst. There is mild to; moderate right-sided hydronephrosis and right hydroureter is seen. This can be; traced into the pelvis where there is a obstructing calculus in the distal mid; ureter measuring 3 mm in greatest diameter. There is periureteral swelling at; the level of the calculus which is at mid pelvis. No bladder or left ureteral; calculus is seen. Small and large intestinal bowel loops are unremarkable. A; normal appendix is seen. No pelvic mass or adenopathy is seen. No uterine or; ovarian abnormality is observed. The uterus is somewhat retroverted.; ; Impression:; ; Moderate right-sided hydronephrosis and hydroureter due to an obstructing 3 mm; distal ureteral calculus. Otherwise unremarkable study. Normal appendix seen.; ; ; Signed by; Eric Sneed MD 09/16/2016 12:24 P; Outcome: 10:29 CT Study completed. kr3 11:28 Discharge ordered by Provider. dt4 11:41 Discharge Assessment: patient administered narcotics - no. The following High Risk rs3 Discharge criteria are identified: None. Discharged to home ambulatory. Condition: stable. Discharge instructions given to patient, Instructed on discharge instructions, follow up and referral plans. medication usage, Demonstrated understanding of instructions, medications, Patient was not receptive of discharge instructions. Property :Personal belongings accompany Pt. 11:47 Patient left the ED. rs3 Signatures: Dispatcher [employer] EDMS Suad Arthur RN RN kcs Greene, Daniel, RN RN [facility] Martha Noguera, Reg Reg gb Snoia Corbett, Reg Reg lg Sahra CavazosRN RN kr3 Sylvia Renner RN RN rs3 Stefanie Harmon RN RN hs1 Jia Aragon PA-C PASantino dt4 Zen Vargas Nicole nb2 Chart Complete MTDD
--- NOTE | 2016-09-18 12:48 | EDDOCDS ---
Physician Documentation [facility] Name: Violeta Adorno Age: 45 yrs Sex: Female : 1970 Arrival Date: 09/16/2016 Time: 08:47 Bed I6 / Private MD: Disposition: 09/16/16 11:28 Discharged to Home/Self Care. Impression: Urinary tract infection, site not specified, Nausea with vomiting, unspecified, Lower abdominal pain, unspecified - rlq, Calculus of ureter - right. - Condition is Stable. - Discharge Instructions: Kidney Stones, Nausea and Vomiting, Urinary Tract Infection. - Prescriptions for Cipro 500 mg Oral Tablet - take 1 tablet by ORAL route every 12 hours; 14 tablet. Naprosyn 500 mg Oral Tablet - take 1 tablet by ORAL route every 12 hours As needed take with food; 30 tablet. [place] 5- 325 mg Oral Tablet - take 1 tablet by ORAL route every 6 hours As needed MDD: 4 tabs; may cause drowsiness. do not take if working/driving/operating machinery; 20 tablet. Reglan 10 mg Oral Tablet - take 1 tablet by ORAL route every 6 hours As needed take 30 minutes before meals and at bedtime; 20 tablet. Flomax 0.4 mg Oral Capsule, Sust. Release 24 hr - take 1 capsule by ORAL route once daily 1/2 hour following the same meal each day; 30 capsule. - Medication Reconciliation, Local Pharmacy Hours form. - Follow up: Emergency Department; When: As needed; Reason: Worsening of conditions. [facility]; When: Call to arrange an appointment; Reason: Recheck today's complaints, Continuance of care, To establish care. Follow up: [facility]; When: Call to arrange an appointment; Reason: Wound/Symptom Recheck, Further diagnostic work-up, Recheck today's complaints, Continuance of care, To establish care. - Problem is new. - Symptoms have improved. Historical: - Allergies: No known drug Allergies; - Home Meds: 1. multivitamin Oral cap daily 2. ibuprofen 200 mg Oral cap 2 caps every 4 hours (Last dose: 09/16/2016 08:00) - PMHx: none; - PSHx: ? kidney surgery as a baby; - Social history: Smoking status: Patient uses tobacco products, heavy tobacco smoker. No barriers to communication noted, The patient speaks fluent Yoruba, Speaks appropriately for age. - Family history: Not pertinent. - : The pt / caregiver states he / she is not on anticoagulants. Home medication list is obtained from the patient. - Exposure Risk Screening:: None identified. 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 2 in. (157.48 cm); Pain 4/10; 11:16 BP 139 / 67; Pulse 72; Resp 18; Temp 97.6(O); Pulse Ox 98% on R/A; Pain 8/10; nb2 09:16 Body Mass Index 22.86 (56.70 kg, 157.48 cm) hs1 MDM: 09:23 UCG by Nursing ordered. dt4 09:23 Urinalysis Ordered. EDMS 09:23 Urine Culture Ordered. EDMS 10:04 Ondansetron 4 mg IVP once ordered. dt4 10:04 IV Saline Lock ordered. dt4 10:04 Undress patient appropriately for examination ordered. dt4 10:04 morphine 4 mg IVP once ordered. dt4 10:04 NS 0.9% 500 ml IV at bolus once ordered. dt4 10:05 Basic Metabolic Profile Ordered. EDMS 10:05 CBC with Diff Ordered. EDMS 10:05 Liver Profile Ordered. EDMS 10:05 CRP Ordered. EDMS 10:06 CT ABD & PELVIS: No Contrast Ordered. EDMS 10:06 NOTHING BY MOUTH+DIET ordered. EDMS 10:15 Financial registration complete. lg 10:32 Acetaminophen Tablet 975 mg PO once ordered. dt4 10:46 [facility] [place] Payment Agreement was scanned into [email or web address] and attached to record. lg 14:50 T-Sheet-- Draft Copy was scanned into [email or web address] and attached to record. gb 14:50 Radiology Report was scanned into [email or web address] and attached to record. gb Point of Care Testing: Urine : 10:12 hCG Reading: Negative; Control Reading: Positive; kcs Ranges: Administered Medications: 10:28 Drug: Ondansetron 4 mg [ondansetron HCl 2 mg/mL intravenous solution (2 mL)] Route: kr3 IVP; Site: right antecubital; 10:28 Drug: NS 0.9% 500 ml [sodium chloride 0.9 % intravenous solution] Route: IV; Rate: kr3 bolus; Site: right antecubital; 10:59 Follow up: IV Status: Completed infusion; IV Intake: 500ml kr3 11:40 Follow up: IV Status: Completed infusion rs3 10:32 Not Given (Other Intervention Used; pt driving. ): morphine 4 mg IVP once dt4 10:35 Drug: Acetaminophen 975 mg [acetaminophen 325 mg tablet (3 tabs)] Route: PO; kr3 10:59 Follow up: Response: No significant change. kr3 Signatures: Dispatcher [employer] EDMartha Singh, Reg Reg gb Sonia Corbett, Reg Reg lg Sahra Cavazos,RN RN kr3 Sylvia Renner RN RN rs3 Stefanie Harmon RN RN hs1 Jia Aragon PA-C PASantino dt4 The chart was reviewed and I authenticate all verbal orders and agree with the evaluation and treatment provided.Attachments: 10:46 [facility] Payment Agreement lg 14:50 T-Sheet-- Draft Copy gb Chart Complete MTDD
--- NOTE | 2016-09-18 12:48 | EDDOCDS ---
Physician Documentation [facility] Name: Violeta Adorno Age: 45 yrs Sex: Female : 1970 Arrival Date: 09/16/2016 Time: 08:47 Bed I6 / Private MD: Disposition: 09/16/16 11:28 Discharged to Home/Self Care. Impression: Urinary tract infection, site not specified, Nausea with vomiting, unspecified, Lower abdominal pain, unspecified - rlq, Calculus of ureter - right. - Condition is Stable. - Discharge Instructions: Kidney Stones, Nausea and Vomiting, Urinary Tract Infection. - Prescriptions for Cipro 500 mg Oral Tablet - take 1 tablet by ORAL route every 12 hours; 14 tablet. Naprosyn 500 mg Oral Tablet - take 1 tablet by ORAL route every 12 hours As needed take with food; 30 tablet. [place] 5- 325 mg Oral Tablet - take 1 tablet by ORAL route every 6 hours As needed MDD: 4 tabs; may cause drowsiness. do not take if working/driving/operating machinery; 20 tablet. Reglan 10 mg Oral Tablet - take 1 tablet by ORAL route every 6 hours As needed take 30 minutes before meals and at bedtime; 20 tablet. Flomax 0.4 mg Oral Capsule, Sust. Release 24 hr - take 1 capsule by ORAL route once daily 1/2 hour following the same meal each day; 30 capsule. - Medication Reconciliation, Local Pharmacy Hours form. - Follow up: Emergency Department; When: As needed; Reason: Worsening of conditions. [facility]; When: Call to arrange an appointment; Reason: Recheck today's complaints, Continuance of care, To establish care. Follow up: [facility]; When: Call to arrange an appointment; Reason: Wound/Symptom Recheck, Further diagnostic work-up, Recheck today's complaints, Continuance of care, To establish care. - Problem is new. - Symptoms have improved. Historical: - Allergies: No known drug Allergies; - Home Meds: 1. multivitamin Oral cap daily 2. ibuprofen 200 mg Oral cap 2 caps every 4 hours (Last dose: 09/16/2016 08:00) - PMHx: none; - PSHx: ? kidney surgery as a baby; - Social history: Smoking status: Patient uses tobacco products, heavy tobacco smoker. No barriers to communication noted, The patient speaks fluent Luxembourgish, Speaks appropriately for age. - Family history: Not pertinent. - : The pt / caregiver states he / she is not on anticoagulants. Home medication list is obtained from the patient. - Exposure Risk Screening:: None identified. 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 2 in. (157.48 cm); Pain 4/10; 11:16 BP 139 / 67; Pulse 72; Resp 18; Temp 97.6(O); Pulse Ox 98% on R/A; Pain 8/10; nb2 09:16 Body Mass Index 22.86 (56.70 kg, 157.48 cm) hs1 MDM: 09:23 UCG by Nursing ordered. dt4 09:23 Urinalysis Ordered. EDMS 09:23 Urine Culture Ordered. EDMS 10:04 Ondansetron 4 mg IVP once ordered. dt4 10:04 IV Saline Lock ordered. dt4 10:04 Undress patient appropriately for examination ordered. dt4 10:04 morphine 4 mg IVP once ordered. dt4 10:04 NS 0.9% 500 ml IV at bolus once ordered. dt4 10:05 Basic Metabolic Profile Ordered. EDMS 10:05 CBC with Diff Ordered. EDMS 10:05 Liver Profile Ordered. EDMS 10:05 CRP Ordered. EDMS 10:06 CT ABD & PELVIS: No Contrast Ordered. EDMS 10:06 NOTHING BY MOUTH+DIET ordered. EDMS 10:15 Financial registration complete. lg 10:32 Acetaminophen Tablet 975 mg PO once ordered. dt4 10:46 [place] [place] was scanned into [employer] and attached to record. lg 14:50 T-Sheet-- Draft Copy was scanned into [employer] and attached to record. gb 14:50 Radiology Report was scanned into [employer] and attached to record. gb Point of Care Testing: Urine : 10:12 hCG Reading: Negative; Control Reading: Positive; kcs Ranges: Administered Medications: 10:28 Drug: Ondansetron 4 mg [ondansetron HCl 2 mg/mL intravenous solution (2 mL)] Route: kr3 IVP; Site: right antecubital; 10:28 Drug: NS 0.9% 500 ml [sodium chloride 0.9 % intravenous solution] Route: IV; Rate: kr3 bolus; Site: right antecubital; 10:59 Follow up: IV Status: Completed infusion; IV Intake: 500ml kr3 11:40 Follow up: IV Status: Completed infusion rs3 10:32 Not Given (Other Intervention Used; pt driving. ): morphine 4 mg IVP once dt4 10:35 Drug: Acetaminophen 975 mg [acetaminophen 325 mg tablet (3 tabs)] Route: PO; kr3 10:59 Follow up: Response: No significant change. kr3 Signatures: Dispatcher [employer] EDMartha Singh, Reg Reg gb Sonia Corbett, Reg Reg lg Sahra Cavazos,RN RN kr3 Sylvia Renner RN RN rs3 Stefanie Harmon RN RN hs1 Jia Aragon PA-C PASantino dt4 The chart was reviewed and I authenticate all verbal orders and agree with the evaluation and treatment provided.Attachments: 10:46 [facility] Payment Agreement lg 14:50 T-Sheet-- Draft Copy gb Chart Complete MTDD
== END 2016-09-16 11:47 | disposition home or self-care (01) ==
LOC: M ED 08:47
DX: N20.1 Calculus of ureter (principal); N39.0 Urinary tract infection, site not specified; R31.9 Hematuria, unspecified; R11.2 Nausea with vomiting, unspecified; F17.210 Nicotine dependence, cigarettes, uncomplicated
CPT/HCPCS: 36415; 74176; 80048; 80076; 81001; 81025; 85025; 86140; 87086; 96361; 96374; 99284; J2405

== ENCOUNTER 2016-09-26 14:47 | Emergency (ER) | payer OTHER ==
--- NOTE | 2016-09-26 16:36 | REP ---
Clinical: Shortness of breath. Technique: PA and lateral. Comparison: 11/20/2009. Findings: Diffuse coarsened interstitial markings noted throughout the bilateral lung fragoso with subtle opacification at the medial right lung base obscuring the cardiac silhouette. Findings suggest bronchitis with basilar atelectasis and possible right middle lobe infiltrate. Correlation and follow-up. No effusion no pneumothorax cardiac silhouette is without cardiomegaly skeletal structures are intact. Impression: Diffuse coarsened interstitial markings with suspected bibasilar atelectasis and possible small right middle lobe infiltrate. Follow-up to resolution recommended. Signed by Vinnie Gneao MD 09/26/2016 04:27 P
[2016-09-26] MEDS ORDERED: AZITHROMYCIN 250 MG TAB As Ordered ONE (16:56)
--- NOTE | 2016-09-26 17:07 | EDDOCDS ---
Nurse's Notes [facility] Name: Violeta Adorno Age: 46 yrs Sex: Female : 1970 Arrival Date: 09/26/2016 Time: 14:47 Bed I5 / M5 Private MD: NO PRIMARY PHYSICIAN, . Diagnosis: Lobar pneumonia, unspecified organism-possible Right middle lobe pneumnia;Nasal congestion Presentation: 09/26 14:53 Presenting complaint: Patient states: fever, achey stuffy nose for a couple of days srm muscles spasm to mid back last night ( not uncommon). dx with kidney stones and UTI last week. Adult Sepsis Screening: The patient does not have new or worsening altered mentation. Patient's respiratory rate is less than 22. Systolic blood pressure is greater than 100. Patient has a qSOFA score of 0- Negative Sepsis Screen. Suicide/Homicide risk assessment- the patient denies having any suicidal and/or homicidal ideations and does not present with any other emotional, behavioral or mental health complaints. Status: Patient is not a sales service technician or dependent. Transition of care: patient was not received from another setting of care. 14:53 Acuity: JOAO Level 3 srm 14:53 Method Of Arrival: Walkin/Carried/Asstd srm 14:58 Presenting complaint: Patient states: just finished cipro today. srm Triage Assessment: 14:57 General: Appears in no apparent distress, Behavior is appropriate for age, cooperative. srm Pain: Pain currently is 4 out of 10 on a pain scale. HIV screening NA for this visit Offered previously. RATE MARKER: 14:57 LMP N/A - Post-menopause srm Historical: - Allergies: no known allergies; - Home Meds: 1. Flomax 0.4 mg Oral cp24 1 cap once daily 2. Reglan 10 mg Oral tab prn (Last dose: 09/25/2016) 3. Naprosyn 500 mg Oral tab 1 tab every 12 hours prn (Last dose: 09/25/2016) 4. multivitamin Oral cap daily - PMHx: Kidney stones; - PSHx: ? kidney surgery as a baby; - Social history: Smoking status: Patient uses tobacco products, current every day smoker. No barriers to communication noted, The patient speaks fluent Macanese, Speaks appropriately for age. - Family history: Not pertinent. - : The pt / caregiver states he / she is not on anticoagulants. Home medication list is obtained from the patient. - Exposure Risk Screening:: None identified. Screenin:04 Screening information is obtained from the patient. Primary language is Macanese. Fall dls risk: No risks identified. Assistance ADL's: requires no assistance with activities of daily living. Abuse/DV Screen: The patient / caregiver reports he/she is: not in a situation that causes fear, pain or injury. Nutritional screening: No deficits noted. Advance Directives: Currently, there is no health care proxy. There is no active DNR order. There is no living will. There is no Power of Rn Complex Care. home support is adequate. Assessment: 17:04 General: Appears slender, uncomfortable, Behavior is cooperative. Awake, alert, dls oriented. Skin warm and dry. Moves all extremities. Bilateral breath sounds clear. Respirations unlabored. Abdomen soft, non-tender. No apparent distress. The patient / caregiver is instructed regarding the plan of care and ED course. Vital Signs: 14:50 BP 106 / 48; Pulse 83; Resp 18 S; Temp 99.5(O); Pulse Ox 99% on R/A; Weight 54.43 kg gr2 (R); Height 5 ft. 3 in. (160.02 cm) (R); Pain 4/10; 17:03 BP 108 / 52; Pulse 78; Resp 18; Temp 97.7; Pulse Ox 96% on R/A; dls 14:50 Body Mass Index 21.26 (54.43 kg, 160.02 cm) gr2 Vitals: 14:50 Log In Time: September 26, 2016 at 14:50. gr2 ED Course: 14:49 Patient visited by [place]. gr2 14:49 Patient moved to Waiting gr2 14:50 NO PRIMARY PHYSICIAN, . is Private Physician. gr2 14:52 Patient visited by [place]. gr2 14:52 Patient moved to Pre RCE gr2 14:54 Triage Initiated srm 15:25 Patient moved to I5 / M5 bcj 15:30 [facility] le 15:55 Patient visited by Jacqueline Ricci FNP. le 15:55 Patient visited by Jacqueline Ricci FNP. le 16:10 [facility] Payment Agreement was scanned into [employer] and attached to record. gjb 16:25 Urinalysis Sent. pml 16:40 [facility] is Referral Physician. le 17:04 Accompanied by Significant Other, Patient has correct armband on for positive dls identification. Bed in low position. Call light in reach. 17:06 No IV's were initiated during this patient's visit. No procedures done that require dls assistance. Administered Medications: 17:00 Drug: azithromycin 500 mg [azithromycin 250 mg tablet (2 tabs)] Route: PO; dls 17:00 Follow up: Response: Pt left department before re-evaluation is appropriate dls Order Results: Lab Order: Urinalysis; SPEC'M 09/26/16 16:24 Test: APPEARANCE, URINE; Value: CLEAR; Range: CLEAR; Status: F Test: COLOR, URINE; Value: YELLOW; Range: YELLOW; Status: F Test: PH,URINE; Value: 6.0; Range: 5.0-9.0; Units: UNITS; Status: F Test: SPECIFIC GRAVITY URINE AUTO; Value: 1.015; Range: 1.002-1.035; Status: F Test: PROTEIN, URINE AUTO; Value: 1+; Range: NEGATIVE; Abnormal: Above high normal; Units: mg/dL; Status: F Test: GLUCOSE, URINE (UA) AUTO; Value: NEGATIVE; Range: NEGATIVE; Units: mg/dL; Status: F Test: KETONE, URINE AUTO; Value: TRACE; Range: NEGATIVE; Abnormal: Above high normal; Units: mg/dL; Status: F Test: UROBILINOGEN, URINE AUTO; Value: 0.2; Range: 0.0-2.0; Units: mg/dL; Status: F Test: BILIRUBIN, URINE AUTO; Value: NEGATIVE; Range: NEGATIVE; Status: F Test: NITRITE, URINE AUTO; Value: NEGATIVE; Range: NEGATIVE; Status: F Test: LEUKOCYTE ESTERASE, URINE AUTO; Value: NEGATIVE; Range: NEGATIVE; Status: F Test: BLOOD, URINE BLOOD; Value: 2+; Range: NEGATIVE; Abnormal: Above high normal; Status: F Test: WBC, URINE AUTO; Value: 2; Range: 0-3; Units: /HPF; Status: F Test: RBC, URINE AUTO; Value: TNTC; Range: 0-3; Abnormal: Above high normal; Units: /HPF; Status: F Test: BACTERIA, URINE AUTO; Value: NEGATIVE; Range: NEGATIVE; Status: F Test: SQUAMOUS EPITHELIAL CELL UR AU; Value: 0; Range: 0-6; Units: /HPF; Status: F Test: MUCUS, URINE; Value: SMALL; Range: NEGATIVE; Status: F Test: HYALINE CAST, URINE AUTO; Value: 0; Range: 0-1; Units: /LPF; Status: F Outcome: 16:41 Discharge ordered by Provider. le 17:04 The following High Risk Discharge criteria are identified: None. Discharged to home dls ambulatory, with significant other. Condition: stable. Discharge instructions given to patient, Instructed on discharge instructions, follow up and referral plans. medication usage, Demonstrated understanding of instructions, medications, Pt was receptive of discharge instructions/ teaching. No special radiology studies were completed. 17:06 Discharge Assessment: Patient awake, alert and oriented x 3. No cognitive and/or dls functional deficits noted. Patient verbalized understanding of disposition instructions. patient administered narcotics - no. Property sent home with patient. 17:06 Patient left the ED. dls Signatures: Johnny Hernández, RN RN Kamryn Govea, RN RN Arabella Sorenson RN RN dls Westcott, Lisa, [employer] Angelia De Jesus RN RN pml Raymond, Gainslee gr2 Beck, Gabriela gjb MTDValeri
--- NOTE | 2016-09-26 17:07 | EDDOCDS ---
Physician Documentation [facility] Name: Violeta Adorno Age: 46 yrs Sex: Female : 1970 Arrival Date: 09/26/2016 Time: 14:47 Bed I5 / M5 Private MD: NO PRIMARY PHYSICIAN, . Disposition: 09/26/16 16:41 Discharged to Home/Self Care. Impression: Lobar pneumonia, unspecified organism - possible Right middle lobe pneumnia, Nasal congestion. - Condition is Stable. - Discharge Instructions: Pneumonia, Adult. - Prescriptions for Zithromax 250 mg Oral Tablet - take 1 tablet by ORAL route once daily start tomorrow; 4 tablet. Fluticasone 50 mcg/actuation Nasal [place], Suspension - inhale 1 spray by INTRANASAL route 2 times per day; 1 bottle. - Medication Reconciliation, Local Pharmacy Hours form. - [facility]; When: Call to arrange an appointment; Reason: Recheck today's complaints, Continuance of care. - Problem is new. - Symptoms are unchanged. - Notes: Keep hydrated Return to the ED for any further concerns Historical: - Allergies: no known allergies; - Home Meds: 1. Flomax 0.4 mg Oral cp24 1 cap once daily 2. Reglan 10 mg Oral tab prn (Last dose: 09/25/2016) 3. Naprosyn 500 mg Oral tab 1 tab every 12 hours prn (Last dose: 09/25/2016) 4. multivitamin Oral cap daily - PMHx: Kidney stones; - PSHx: ? kidney surgery as a baby; - Social history: Smoking status: Patient uses tobacco products, current every day smoker. No barriers to communication noted, The patient speaks fluent Palauan, Speaks appropriately for age. - Family history: Not pertinent. - : The pt / caregiver states he / she is not on anticoagulants. Home medication list is obtained from the patient. - Exposure Risk Screening:: None identified. 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 3 in. (160.02 cm) (R); Pain 4/10; 17:03 BP 108 / 52; Pulse 78; Resp 18; Temp 97.7; Pulse Ox 96% on R/A; dls 14:50 Body Mass Index 21.26 (54.43 kg, 160.02 cm) gr2 MDM: 16:04 Chest, 2 View (pa\E\lat) Ordered. EDMS 16:08 Financial registration complete. gjb 16:10 [facility] Payment Agreement was scanned into [employer] and attached to record. gjb 16:19 Urinalysis Ordered. EDMS 16:38 Urinalysis Reviewed. le 16:43 azithromycin 500 mg PO once ordered. le Administered Medications: 17:00 Drug: azithromycin 500 mg [azithromycin 250 mg tablet (2 tabs)] Route: PO; dls 17:00 Follow up: Response: Pt left department before re-evaluation is appropriate dls Signatures: Dispatcher [employer] EDKamryn Kenyon RN RN srm Scott, Debra, RN RN dls Westcott, Lisa, FNP FNP le Beck, Gabriela gjb The chart was reviewed and I authenticate all verbal orders and agree with the evaluation and treatment provided.Attachments: 16:10 [facility] Payment Agreement gjb MTDValeri
--- NOTE | 2016-09-28 18:07 | EDDOCDS ---
Nurse's Notes [facility] Name: Violeta Adorno Age: 46 yrs Sex: Female : 1970 Arrival Date: 09/26/2016 Time: 14:47 Bed I5 / M5 Private MD: NO PRIMARY PHYSICIAN, . Diagnosis: Lobar pneumonia, unspecified organism-possible Right middle lobe pneumnia;Nasal congestion Presentation: 09/26 14:53 Presenting complaint: Patient states: fever, achey stuffy nose for a couple of days srm muscles spasm to mid back last night ( not uncommon). dx with kidney stones and UTI last week. Adult Sepsis Screening: The patient does not have new or worsening altered mentation. Patient's respiratory rate is less than 22. Systolic blood pressure is greater than 100. Patient has a qSOFA score of 0- Negative Sepsis Screen. Suicide/Homicide risk assessment- the patient denies having any suicidal and/or homicidal ideations and does not present with any other emotional, behavioral or mental health complaints. Status: Patient is not a server service assistant or dependent. Transition of care: patient was not received from another setting of care. 14:53 Acuity: JOAO Level 3 srm 14:53 Method Of Arrival: Walkin/Carried/Asstd srm 14:58 Presenting complaint: Patient states: just finished cipro today. srm Triage Assessment: 14:57 General: Appears in no apparent distress, Behavior is appropriate for age, cooperative. srm Pain: Pain currently is 4 out of 10 on a pain scale. HIV screening NA for this visit Offered previously. LAY OUT INSPECTOR: 14:57 LMP N/A - Post-menopause srm Historical: - Allergies: no known allergies; - Home Meds: 1. Flomax 0.4 mg Oral cp24 1 cap once daily 2. Reglan 10 mg Oral tab prn (Last dose: 09/25/2016) 3. Naprosyn 500 mg Oral tab 1 tab every 12 hours prn (Last dose: 09/25/2016) 4. multivitamin Oral cap daily - PMHx: Kidney stones; - PSHx: ? kidney surgery as a baby; - Social history: Smoking status: Patient uses tobacco products, current every day smoker. No barriers to communication noted, The patient speaks fluent Indian, Speaks appropriately for age. - Family history: Not pertinent. - : The pt / caregiver states he / she is not on anticoagulants. Home medication list is obtained from the patient. - Exposure Risk Screening:: None identified. Screenin:04 Screening information is obtained from the patient. Primary language is Indian. Fall dls risk: No risks identified. Assistance ADL's: requires no assistance with activities of daily living. Abuse/DV Screen: The patient / caregiver reports he/she is: not in a situation that causes fear, pain or injury. Nutritional screening: No deficits noted. Advance Directives: Currently, there is no health care proxy. There is no active DNR order. There is no living will. There is no Power of Integrated Campaign Manager. home support is adequate. Assessment: 17:04 General: Appears slender, uncomfortable, Behavior is cooperative. Awake, alert, dls oriented. Skin warm and dry. Moves all extremities. Bilateral breath sounds clear. Respirations unlabored. Abdomen soft, non-tender. No apparent distress. The patient / caregiver is instructed regarding the plan of care and ED course. Vital Signs: 14:50 BP 106 / 48; Pulse 83; Resp 18 S; Temp 99.5(O); Pulse Ox 99% on R/A; Weight 54.43 kg gr2 (R); Height 5 ft. 3 in. (160.02 cm) (R); Pain 4/10; 17:03 BP 108 / 52; Pulse 78; Resp 18; Temp 97.7; Pulse Ox 96% on R/A; dls 14:50 Body Mass Index 21.26 (54.43 kg, 160.02 cm) gr2 Vitals: 14:50 Log In Time: September 26, 2016 at 14:50. gr2 ED Course: 14:49 Patient visited by [place]. gr2 14:49 Patient moved to Waiting gr2 14:50 NO PRIMARY PHYSICIAN, . is Private Physician. gr2 14:52 Patient visited by [place]. gr2 14:52 Patient moved to Pre RCE gr2 14:54 Triage Initiated srm 15:25 Patient moved to I5 / M5 bcj 15:30 Jacqueline Ricci FNP [facility] le 15:55 Patient visited by Jacqueline Ricci FNP. le 15:55 Patient visited by Jacqueline Ricci FNP. le 16:10 [facility] Payment Agreement was scanned into [employer] and attached to record. gjb 16:25 Urinalysis Sent. pml 16:40 [facility] is Referral Physician. le 17:04 Accompanied by Significant Other, Patient has correct armband on for positive dls identification. Bed in low position. Call light in reach. 17:06 No IV's were initiated during this patient's visit. No procedures done that require dls assistance. 17:09 Chest, 2 View (pa\E\lat) Returned. EDMS 09/27 11:44 T-Sheet-- Draft Copy was scanned into [employer] and attached to record. gb Administered Medications: 09/26 17:00 Drug: azithromycin 500 mg [azithromycin 250 mg tablet (2 tabs)] Route: PO; dls 17:00 Follow up: Response: Pt left department before re-evaluation is appropriate dls Order Results: Lab Order: Urinalysis; SPEC'M 09/26/16 16:24 Test: APPEARANCE, URINE; Value: CLEAR; Range: CLEAR; Status: F Test: COLOR, URINE; Value: YELLOW; Range: YELLOW; Status: F Test: PH,URINE; Value: 6.0; Range: 5.0-9.0; Units: UNITS; Status: F Test: SPECIFIC GRAVITY URINE AUTO; Value: 1.015; Range: 1.002-1.035; Status: F Test: PROTEIN, URINE AUTO; Value: 1+; Range: NEGATIVE; Abnormal: Above high normal; Units: mg/dL; Status: F Test: GLUCOSE, URINE (UA) AUTO; Value: NEGATIVE; Range: NEGATIVE; Units: mg/dL; Status: F Test: KETONE, URINE AUTO; Value: TRACE; Range: NEGATIVE; Abnormal: Above high normal; Units: mg/dL; Status: F Test: UROBILINOGEN, URINE AUTO; Value: 0.2; Range: 0.0-2.0; Units: mg/dL; Status: F Test: BILIRUBIN, URINE AUTO; Value: NEGATIVE; Range: NEGATIVE; Status: F Test: NITRITE, URINE AUTO; Value: NEGATIVE; Range: NEGATIVE; Status: F Test: LEUKOCYTE ESTERASE, URINE AUTO; Value: NEGATIVE; Range: NEGATIVE; Status: F Test: BLOOD, URINE BLOOD; Value: 2+; Range: NEGATIVE; Abnormal: Above high normal; Status: F Test: WBC, URINE AUTO; Value: 2; Range: 0-3; Units: /HPF; Status: F Test: RBC, URINE AUTO; Value: TNTC; Range: 0-3; Abnormal: Above high normal; Units: /HPF; Status: F Test: BACTERIA, URINE AUTO; Value: NEGATIVE; Range: NEGATIVE; Status: F Test: SQUAMOUS EPITHELIAL CELL UR AU; Value: 0; Range: 0-6; Units: /HPF; Status: F Test: MUCUS, URINE; Value: SMALL; Range: NEGATIVE; Status: F Test: HYALINE CAST, URINE AUTO; Value: 0; Range: 0-1; Units: /LPF; Status: F Radiology Order: Chest, 2 View (pa\E\lat) Test: Chest, 2 View (pa\E\lat) REASON FOR EXAMINATION: Shortness of Breath; Clinical: Shortness of breath.; ; Technique: PA and lateral.; ; Comparison: 11/20/2009.; ; Findings:; Diffuse coarsened interstitial markings noted throughout the bilateral lung; fragoso with subtle opacification at the medial right lung base obscuring the; cardiac silhouette. Findings suggest bronchitis with basilar atelectasis and; possible right middle lobe infiltrate. Correlation and follow-up. No effusion; no pneumothorax cardiac silhouette is without cardiomegaly skeletal structures; are intact.; ; Impression:; Diffuse coarsened interstitial markings with suspected bibasilar atelectasis and; possible small right middle lobe infiltrate. Follow-up to resolution; recommended.; ; ; Signed by; Vinnie Genao MD 09/26/2016 04:27 P; Outcome: 16:41 Discharge ordered by Provider. 17:04 The following High Risk Discharge criteria are identified: None. Discharged to home dls ambulatory, with significant other. Condition: stable. Discharge instructions given to patient, Instructed on discharge instructions, follow up and referral plans. medication usage, Demonstrated understanding of instructions, medications, Pt was receptive of discharge instructions/ teaching. No special radiology studies were completed. 17:06 Discharge Assessment: Patient awake, alert and oriented x 3. No cognitive and/or dls functional deficits noted. Patient verbalized understanding of disposition instructions. patient administered narcotics - no. Property sent home with patient. 17:06 Patient left the ED. dls Signatures: Dispatcher [facility] Johnny Hernández, Kamryn Landaverde RN, RN RN Arabella Sorenson RN RN dls Chuckie, Martha, Reg Reg gb Jacqueline Ricci, OUTBOUND SALES CONSULTANT OUTBOUND SALES CONSULTANT Angelia Hinton RN RN [place] Gabriela gjb Chart Complete MTDD
--- NOTE | 2016-09-28 18:07 | EDDOCDS ---
Physician Documentation [facility] Name: Violeta Adorno Age: 46 yrs Sex: Female : 1970 Arrival Date: 09/26/2016 Time: 14:47 Bed I5 / M5 Private MD: NO PRIMARY PHYSICIAN, . Disposition: 09/26/16 16:41 Discharged to Home/Self Care. Impression: Lobar pneumonia, unspecified organism - possible Right middle lobe pneumnia, Nasal congestion. - Condition is Stable. - Discharge Instructions: Pneumonia, Adult. - Prescriptions for Zithromax 250 mg Oral Tablet - take 1 tablet by ORAL route once daily start tomorrow; 4 tablet. Fluticasone 50 mcg/actuation Nasal [place], Suspension - inhale 1 spray by INTRANASAL route 2 times per day; 1 bottle. - Medication Reconciliation, Local Pharmacy Hours form. - [facility]; When: Call to arrange an appointment; Reason: Recheck today's complaints, Continuance of care. - Problem is new. - Symptoms are unchanged. - Notes: Keep hydrated Return to the ED for any further concerns Historical: - Allergies: no known allergies; - Home Meds: 1. Flomax 0.4 mg Oral cp24 1 cap once daily 2. Reglan 10 mg Oral tab prn (Last dose: 09/25/2016) 3. Naprosyn 500 mg Oral tab 1 tab every 12 hours prn (Last dose: 09/25/2016) 4. multivitamin Oral cap daily - PMHx: Kidney stones; - PSHx: ? kidney surgery as a baby; - Social history: Smoking status: Patient uses tobacco products, current every day smoker. No barriers to communication noted, The patient speaks fluent [place], Speaks appropriately for age. - Family history: Not pertinent. - : The pt / caregiver states he / she is not on anticoagulants. Home medication list is obtained from the patient. - Exposure Risk Screening:: None identified. 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 3 in. (160.02 cm) (R); Pain 4/10; 17:03 BP 108 / 52; Pulse 78; Resp 18; Temp 97.7; Pulse Ox 96% on R/A; dls 14:50 Body Mass Index 21.26 (54.43 kg, 160.02 cm) gr2 MDM: 16:04 Chest, 2 View (pa\E\lat) Ordered. EDMS 16:08 Financial registration complete. gjb 16:10 [facility] Payment Agreement was scanned into [employer] and attached to record. gjb 16:19 Urinalysis Ordered. EDMS 16:38 Urinalysis Reviewed. le 16:43 azithromycin 500 mg PO once ordered. le 09/27 11:44 T-Sheet-- Draft Copy was scanned into [employer] and attached to record. gb Administered Medications: 09/26 17:00 Drug: azithromycin 500 mg [azithromycin 250 mg tablet (2 tabs)] Route: PO; dls 17:00 Follow up: Response: Pt left department before re-evaluation is appropriate dls Signatures: Dispatcher [employer] EDKamryn Kenyon RN RN srm Scott, Debra, RN RN dls Martha Noguera, Reg Reg gb Jacqueline Ricci, ELECTRIC DRILL OPERATOR ELECTRIC DRILL OPERATORLori Silva The chart was reviewed and I authenticate all verbal orders and agree with the evaluation and treatment provided.Attachments: 16:10 [facility] Payment Agreement [facility] 09/27 11:44 T-Sheet-- Draft Copy gb Chart Complete MTDD
--- NOTE | 2016-09-28 18:07 | EDDOCDS ---
Physician Documentation [facility] Name: Violeta Adorno Age: 46 yrs Sex: Female : 1970 Arrival Date: 09/26/2016 Time: 14:47 Bed I5 / M5 Private MD: NO PRIMARY PHYSICIAN, . Disposition: 09/26/16 16:41 Discharged to Home/Self Care. Impression: Lobar pneumonia, unspecified organism - possible Right middle lobe pneumnia, Nasal congestion. - Condition is Stable. - Discharge Instructions: Pneumonia, Adult. - Prescriptions for Zithromax 250 mg Oral Tablet - take 1 tablet by ORAL route once daily start tomorrow; 4 tablet. Fluticasone 50 mcg/actuation Nasal [place], Suspension - inhale 1 spray by INTRANASAL route 2 times per day; 1 bottle. - Medication Reconciliation, Local Pharmacy Hours form. - [facility]; When: Call to arrange an appointment; Reason: Recheck today's complaints, Continuance of care. - Problem is new. - Symptoms are unchanged. - Notes: Keep hydrated Return to the ED for any further concerns Historical: - Allergies: no known allergies; - Home Meds: 1. Flomax 0.4 mg Oral cp24 1 cap once daily 2. Reglan 10 mg Oral tab prn (Last dose: 09/25/2016) 3. Naprosyn 500 mg Oral tab 1 tab every 12 hours prn (Last dose: 09/25/2016) 4. multivitamin Oral cap daily - PMHx: Kidney stones; - PSHx: ? kidney surgery as a baby; - Social history: Smoking status: Patient uses tobacco products, current every day smoker. No barriers to communication noted, The patient speaks fluent Italian, Speaks appropriately for age. - Family history: Not pertinent. - : The pt / caregiver states he / she is not on anticoagulants. Home medication list is obtained from the patient. - Exposure Risk Screening:: None identified. 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 3 in. (160.02 cm) (R); Pain 4/10; 17:03 BP 108 / 52; Pulse 78; Resp 18; Temp 97.7; Pulse Ox 96% on R/A; dls 14:50 Body Mass Index 21.26 (54.43 kg, 160.02 cm) gr2 MDM: 16:04 Chest, 2 View (pa\E\lat) Ordered. EDMS 16:08 Financial registration complete. gjb 16:10 [facility] Payment Agreement was scanned into [facility] and attached to record. gjb 16:19 Urinalysis Ordered. EDMS 16:38 Urinalysis Reviewed. le 16:43 azithromycin 500 mg PO once ordered. le 09/27 11:44 T-Sheet-- Draft Copy was scanned into [employer] and attached to record. gb Administered Medications: 09/26 17:00 Drug: azithromycin 500 mg [azithromycin 250 mg tablet (2 tabs)] Route: PO; dls 17:00 Follow up: Response: Pt left department before re-evaluation is appropriate dls Signatures: Dispatcher [employer] EDKamryn Kenyon RN RN srm Scott, Debra, RN RN dls Martha Noguera, Reg Reg gb Jacqueline Ricci, CURRICULUM AND ASSESSMENT COORDINATOR CURRICULUM AND ASSESSMENT COORDINATORLori Silva The chart was reviewed and I authenticate all verbal orders and agree with the evaluation and treatment provided.Attachments: 16:10 [facility] Payment Agreement [facility] 09/27 11:44 T-Sheet-- Draft Copy gb Chart Complete MTDD
== END 2016-09-26 17:06 | disposition home or self-care (01) ==
LOC: M ED 14:47
DX: R91.8 Other nonspecific abnormal finding of lung field (principal); F17.210 Nicotine dependence, cigarettes, uncomplicated; Z79.899 Other long term (current) drug therapy; Z87.442 Personal history of urinary calculi

== ENCOUNTER → 2016-10-04 | Outpatient (REF) | payer OTHER | LOC: M SMT 12:56 | PROVIDERS: ATTEND Nurse Practitioner Women's Health | DX: N13.2 Hydronephrosis with renal and ureteral calculous obstruction (principal) ==

== ENCOUNTER → 2016-11-01 | Outpatient (REF) | payer OTHER ==
[2016-11-01 15:36] LABS: BASO % 0.4 % (0.0-1.0); EOS # 0.1 K/mm3 (0.0-0.50); EOS % 1.5 % (0.0-3.0); LARGE UNSTAINED CELL # 0.1 K/mm3 (0.0-0.4); LARGE UNSTAINED CELL % 1.3 % (0.0-4.0); LYMPH % 27.8 % (24.0-44.0); MEAN CORPUSCULAR HEMOGLOBIN 30.2 pg (27.0-33.0); MEAN CORPUSCULAR HGB CONC 32.6 g/dl (32.0-36.5); MEAN CORPUSCULAR VOLUME 92.7 fl (80.0-96.0); MONO # 0.5 K/mm3 (0.0-0.8); MONO % 6.4 % (0.0-5.0); NEUTROPHILS # 4.5 K/mm3 (1.8-7.7); NEUTROPHILS % 62.6 % (36.0-66.0); PLATELET COUNT, AUTOMATED 257 k/mm3 (150-450); RED CELL DISTRIBUTION WIDTH 14.1 % (11.5-14.5); WHITE BLOOD COUNT 7.1 K/mm3 (4.0-10.0)
[2016-11-01 16:11] LABS: ALBUMIN 3.9 GM/DL (3.2-5.2); ALBUMIN/GLOBULIN RATIO 1.08 (1.00-1.93); ALKALINE PHOSPHATASE 85 U/L (45-117); ALT/SGPT 32 U/L (12-78); ANION GAP 6 MEQ/L (8-16); AST/SGOT 21 U/L (15-37); BILIRUBIN,TOTAL 0.3 MG/DL (0.2-1.0); BLOOD UREA NITROGEN 8 MG/DL (7-18); CALCIUM LEVEL 8.9 MG/DL (8.5-10.1); CARBON DIOXIDE LEVEL 30 MEQ/L (21-32); CHLORIDE LEVEL 104 MEQ/L (98-107); CREATININE FOR GFR 0.56 MG/DL (0.55-1.02); FREE T4 0.91 NG/DL (0.76-1.46); GLOMERULAR FILTRATION RATE > 60.0 (>58); GLUCOSE, FASTING 86 MG/DL (70-105); POTASSIUM SERUM 4.4 MEQ/L (3.5-5.1); SODIUM LEVEL 140 MEQ/L (136-145); TOTAL PROTEIN 7.5 GM/DL (6.4-8.2)
== END ==
LOC: M SFHCPLAZ 14:38
PROVIDERS: ATTEND Nurse Practitioner Family
DX: R40.0 Somnolence (principal); F41.9 Anxiety disorder, unspecified

== ENCOUNTER → 2017-09-02 | Outpatient (REF) | payer OTHER | LOC: M SFHCPLAZ 15:55 | DX: R30.0 Dysuria (principal) ==

== ENCOUNTER 2018-02-17 20:47 | Emergency (ER) | payer OTHER ==
[2018-02-17] MEDS: ONDANSETRON 4MG/2ML VIAL (J2405) IV (22:45)
[2018-02-17] MEDS: MECLIZINE 25 MG TABLET PO (22:45)
[2018-02-17] MEDS: KETOROLAC 30 MG/ML VIAL (J1885) IV (22:45)
[2018-02-17] MEDS: NS 1,000 ML IV (22:45)
[2018-02-17 23:06] LABS: BASO # 0.1 10^3/uL (0.0-0.2); BASO % 0.6 % (0.0-1.0); EOS # 0.2 10^3/uL (0.0-0.50); EOS % 2.1 % (0.0-3.0); HEMOGLOBIN 13.4 g/dl (12.0-15.5); IMMATURE GRANULOCYTE % 0.1 % (0-3.0); LYMPH # 3.1 10^3/uL (1.5-4.5); LYMPH % 37.4 % (24.0-44.0); MEAN CORPUSCULAR HEMOGLOBIN 30.9 pg (27.0-33.0); MEAN CORPUSCULAR HGB CONC 33.5 g/dl (32.0-36.5); MEAN CORPUSCULAR VOLUME 92.4 fl (80.0-96.0); MONO # 0.6 10^3/uL (0.0-0.8); MONO % 6.9 % (0.0-5.0); NEUTROPHILS # 4.4 10^3/uL (1.8-7.7); NEUTROPHILS % 52.9 % (36.0-66.0); PLATELET COUNT, AUTOMATED 250 10^3/uL (150-450); RED BLOOD COUNT 4.33 10^6/uL (4.00-5.40); RED CELL DISTRIBUTION WIDTH 13.9 % (11.5-14.5); WHITE BLOOD COUNT 8.4 10^3/uL (4.0-10.0)
[2018-02-17 23:28] LABS: ANION GAP 6 MEQ/L (8-16); BLOOD UREA NITROGEN 6 MG/DL (7-18); CALCIUM LEVEL 8.9 MG/DL (8.5-10.1); CARBON DIOXIDE LEVEL 30 MEQ/L (21-32); CHLORIDE LEVEL 107 MEQ/L (98-107); CREATININE FOR GFR 0.62 MG/DL (0.55-1.30); GLOMERULAR FILTRATION RATE > 60.0 (>58); GLUCOSE, FASTING 92 MG/DL (70-100); POTASSIUM SERUM 3.9 MEQ/L (3.5-5.1); SODIUM LEVEL 143 MEQ/L (136-145)
[2018-02-18 00:38] LABS: APPEARANCE, URINE CLEAR (CLEAR); BACTERIA, URINE AUTO NEGATIVE (NEGATIVE); BILIRUBIN, URINE AUTO NEGATIVE (NEGATIVE); BLOOD, URINE BLOOD NEGATIVE (NEGATIVE); COLOR, URINE STRAW (YELLOW); GLUCOSE, URINE (UA) AUTO NEGATIVE (NEGATIVE); KETONE, URINE AUTO NEGATIVE (NEGATIVE); LEUKOCYTE ESTERASE, URINE AUTO 2+ (NEGATIVE); NITRITE, URINE AUTO NEGATIVE (NEGATIVE); PROTEIN, URINE AUTO NEGATIVE (NEGATIVE); RBC, URINE AUTO 3 /HPF (0-3); SPECIFIC GRAVITY URINE AUTO 1.003 (1.002-1.035); SQUAMOUS EPITHELIAL CELL UR AU 4 /HPF (0-6); UROBILINOGEN, URINE AUTO 0.2 mg/dL (0.0-2.0); WBC, URINE AUTO 13 /HPF (0-3)
== END 2018-02-18 01:42 | disposition home or self-care (01) ==
LOC: M ED 02-18 01:42
DX: G43.909 Migraine, unspecified, not intractable, without status migrainosus (principal); Z79.899 Other long term (current) drug therapy
CPT/HCPCS: J2405

== ENCOUNTER 2018-10-19 19:09 | Emergency (ER) | payer OTHER ==
[~2018-10-19] VITALS: Ht 160 cm; Wt 54.5 kg
[~2018-10-19 19:09] MED LIST: CITA10TA5; MACR100C43 PO; MECL-68 PO; NAPR-50 PO
[2018-10-19] MEDS ORDERED: FLON1SPR NARES (19:16)
[2018-10-19] MEDS ORDERED: ACE65ERTAB PO (19:16)
[2018-10-19] MEDS ORDERED: PSEUDOEPHEDRINE 30 MG TAB PO STA (20:36)
[2018-10-19] MEDS ORDERED: BENZONATATE 100 MG CAP PO ONE (20:45)
[2018-10-19 21:08] LABS: INFLUENZA A AMPLIFICATION NEGATIVE (NEGATIVE); INFLUENZA B AMPLIFICATION NEGATIVE (NEGATIVE)
[2018-10-19] MEDS ORDERED: 12 H120T2 PO (21:55)
[2018-10-19] MEDS ORDERED: TESS100C PO (21:55)
[2018-10-19 22:08] VITALS: BP 111/60
== END 2018-10-19 22:10 | disposition home or self-care (01) ==
LOC: M ED 19:09
DX: J32.9 Chronic sinusitis, unspecified (principal); R05 Cough; H93.19 Tinnitus, unspecified ear; F17.200 Nicotine dependence, unspecified, uncomplicated; Z88.8 Allergy status to other drugs, medicaments and biological substances; Z79.899 Other long term (current) drug therapy

== ENCOUNTER → 2018-11-20 | Outpatient (REF) | payer OTHER ==
[~2018-11-20] MED LIST changes: +12 H120T2 PO; +ACE65ERTAB PO; +FLON1SPR NARES; -NAPR-50 PO; +NAPR-837 PO; +TESS100C PO
[2018-11-20 16:42] LABS: APPEARANCE, URINE CLOUDY (CLEAR); BACTERIA, URINE AUTO NEGATIVE (NEGATIVE); BILIRUBIN, URINE AUTO NEGATIVE (NEGATIVE); BLOOD, URINE BLOOD NEGATIVE (NEGATIVE); CALCIUM OXALATE CRYSTALS LARGE; COLOR, URINE YELLOW (YELLOW); GLUCOSE, URINE (UA) AUTO NEGATIVE (NEGATIVE); KETONE, URINE AUTO TRACE mg/dL (NEGATIVE); LEUKOCYTE ESTERASE, URINE AUTO NEGATIVE (NEGATIVE); MUCUS, URINE MODERATE (NEGATIVE); NITRITE, URINE AUTO NEGATIVE (NEGATIVE); PROTEIN, URINE AUTO NEGATIVE (NEGATIVE); RBC, URINE AUTO 8 /HPF (0-3); SPECIFIC GRAVITY URINE AUTO 1.026 (1.002-1.035); SQUAMOUS EPITHELIAL CELL UR AU 16 /HPF (0-6); WBC, URINE AUTO 3 /HPF (0-3)
[2018-11-20 19:04] LABS: ALBUMIN 3.6 GM/DL (3.2-5.2); ALT/SGPT 31 U/L (12-78); BILIRUBIN,TOTAL 0.2 MG/DL (0.2-1.0); BLOOD UREA NITROGEN 12 MG/DL (7-18); CALCIUM LEVEL 8.6 MG/DL (8.5-10.1); CARBON DIOXIDE LEVEL 27 MEQ/L (21-32); CHLORIDE LEVEL 107 MEQ/L (98-107); CHOLESTEROL LEVEL 271 MG/DL (<200); CHOLESTEROL RISK RATIO 5.645 (<5); CREATININE FOR GFR 0.72 MG/DL (0.55-1.30); FREE T4 0.93 NG/DL (0.76-1.46); GLOMERULAR FILTRATION RATE > 60.0 (>51); GLUCOSE, FASTING 109 MG/DL (70-100); HDL CHOLESTEROL 48 MG/DL (>40); LDL CHOLESTEROL 183 MG/DL (<100); NON-HDL-C 223 MG/DL; POTASSIUM SERUM 3.9 MEQ/L (3.5-5.1); SODIUM LEVEL 141 MEQ/L (136-145); TOTAL PROTEIN 7.1 GM/DL (6.4-8.2); TRIGLYCERIDES LEVEL 202 MG/DL (<150)
[2018-11-20 19:07] LABS: TOTAL 25(OH) VITAMIN D 12.2 NG/ML (30.0-100.0)
[2018-11-20 19:12] LABS: BASO % 0.6 % (0.0-1.0); EOS # 0.2 10^3/uL (0.0-0.50); EOS % 3.4 % (0.0-3.0); HEMATOCRIT 41.9 % (36.0-47.0); HEMOGLOBIN 13.7 g/dl (12.0-15.5); LYMPH # 2.5 10^3/uL (1.5-4.5); LYMPH % 38.3 % (24.0-44.0); MEAN CORPUSCULAR HEMOGLOBIN 30.6 pg (27.0-33.0); MEAN CORPUSCULAR HGB CONC 32.7 g/dl (32.0-36.5); MEAN CORPUSCULAR VOLUME 93.5 fl (80.0-96.0); MONO # 0.5 10^3/uL (0.0-0.8); MONO % 7.2 % (0.0-5.0); NEUTROPHILS # 3.3 10^3/uL (1.8-7.7); NEUTROPHILS % 50.2 % (36.0-66.0); PLATELET COUNT, AUTOMATED 253 10^3/uL (150-450); RED BLOOD COUNT 4.48 10^6/uL (4.00-5.40); WHITE BLOOD COUNT 6.5 10^3/uL (4.0-10.0)
[2018-11-20 19:31] LABS: HEMOGLOBIN A1c 5.9 %
[2018-11-23 00:06] LABS: Lyme Disease IgG/IgM Antibodie <0.91 ISR (0.00-0.90); Lyme Disease IgM Ab Quantitati <0.80 index (0.00-0.79)
== END ==
LOC: M LAB REF 16:15
PROVIDERS: ATTEND Family Medicine
DX: Z00.01 Encounter for general adult medical examination with abnormal findings (principal); Z13.228 Encounter for screening for other metabolic disorders

== ENCOUNTER → 2018-11-29 | Outpatient (REF) | payer OTHER ==
[2018-11-29 21:48] LABS: CHLAMYDIA DNA AMPLIFICATION NEGATIVE (NEGATIVE); GC DNA AMPLIFICATION NEGATIVE (NEGATIVE)
[2018-12-01 14:26] LABS: HPV HYBRID CAPTURE II Positive (Negative)
== END ==
LOC: M LAB REF 17:44
PROVIDERS: ATTEND Advanced Practice Midwife
DX: Z01.411 Encounter for gynecological examination (general) (routine) with abnormal findings (principal); Z12.4 Encounter for screening for malignant neoplasm of cervix

== ENCOUNTER 2018-12-18 06:46 | Day surgery (SDC) | payer OTHER ==
[~2018-12-18] VITALS: Ht 160 cm; Wt 51.6 kg
[~2018-12-18 06:46] MED LIST changes: +ATOR1TAB19 PO; +LEXA1TAB PO; +TYLE650T35 PO; +VITA50005 PO; +VITAD1000T PO
[2018-12-18] MEDS ORDERED: PROPOFOL 200 MG/20 ML VIAL As Ordered ONE ×2 (07:57→08:51)
[2018-12-18] MEDS ORDERED: LIDOCAINE 2% INJ 100 MG/5 ML SDV (FOR ANES.) As Ordered ONE (07:58)
--- NOTE | 2018-12-18 08:51 | ROOR ---
Patient Name: Violeta Adorno Procedure Date: 12/18/2018 8:03 AM Date of : 1970 Age: 48 Room: [facility] Gender: Female Note Status: Finalized Procedure: Colonoscopy Indications: Screening for colorectal malignant neoplasm Providers: Easton Salinas MD Referring MD: Sidney LU MD Requesting Provider: Medicines: Monitored Anesthesia Care Complications: No immediate complications. Procedure: Pre-Anesthesia Assessment: - Prior to the procedure, a History and Physical was performed, and patient medications and allergies were reviewed. The patient is competent. The risks and benefits of the procedure and the sedation options and risks were discussed with the patient. All questions were answered and informed consent was obtained. Patient identification and proposed procedure were verified by the physician, the nurse and the anesthesiologist in the procedure room. Mental Status Examination: alert and oriented. Airway Examination: normal oropharyngeal airway and neck mobility. Respiratory Examination: clear to auscultation. CV Examination: normal. Prophylactic Antibiotics: The patient does not require prophylactic antibiotics. Prior Anticoagulants: The patient has taken no previous anticoagulant or antiplatelet agents. ASA Grade Assessment: II - A patient with mild systemic disease. After reviewing the risks and benefits, the patient was deemed in satisfactory condition to undergo the procedure. The anesthesia plan was to use monitored anesthesia care (MAC). Immediately prior to administration of medications, the patient was re-assessed for adequacy to receive sedatives. The heart rate, respiratory rate, oxygen saturations, blood pressure, adequacy of pulmonary ventilation, and response to care were monitored throughout the procedure. The physical status of the patient was re-assessed after the procedure. The Colonoscope was introduced through the anus and advanced to the cecum, identified by appendiceal orifice and ileocecal valve. The colonoscopy was performed without difficulty. The patient tolerated the procedure well. The quality of the bowel preparation was good. The ileocecal valve, the appendiceal orifice and the rectum were photographed. Scope insertion time was 4 minutes. Scope withdrawal time was 10 minutes. The total duration of the procedure was 14 minutes. Findings: The perianal and digital rectal examinations were normal. A 4 mm polyp was found in the transverse colon. The polyp was sessile. The polyp was removed with a cold snare. Resection and retrieval were complete. Verification of patient identification for the specimen was done by the physician and nurse using the patient's name, date and medical record number. Estimated blood loss was minimal. A few sessile polyps were found in the recto-sigmoid colon. The polyps were 3 to 4 mm in size. These polyps were removed with a cold snare. Resection and retrieval were complete. Non-bleeding external and internal hemorrhoids were found during retroflexion. The hemorrhoids were medium-sized. Impression: - One 4 mm polyp in the transverse colon, removed with a cold snare. Resected and retrieved. - A few 3 to 4 mm polyps at the recto-sigmoid colon, removed with a cold snare. Resected and retrieved. - Non-bleeding external and internal hemorrhoids. Recommendation: - Patient has a contact number available for emergencies. The signs and symptoms of potential delayed complications were discussed with the patient. Return to normal activities tomorrow. Written discharge instructions were provided to the patient. - High fiber diet. - Continue present medications. - Await pathology results. - Repeat colonoscopy in 5-10 years for surveillance based on pathology results. - Based on the biopsy results you will receive a phone call from GI clinic in 2-3 weeks to review the pathology results AND/OR your results will be faxed to your Primary care physician. - Return to primary care physician. Easton Salinas MD Easton Salinas MD 12/18/2018 8:50:36 AM Electronically signed by Easton Salinas MD Number of Addenda: 0 Note Initiated On: 12/18/2018 8:03 AM Estimated Blood Loss: Estimated blood loss was minimal.
[2018-12-18 09:05] VITALS: BP 91/57
== END 2018-12-18 09:08 | disposition home or self-care (01) ==
LOC: M OPP 06:46
PROVIDERS: ATTEND Internal Medicine Gastroenterology
DX: K63.5 Polyp of colon (principal); K64.8 Other hemorrhoids; Z12.11 Encounter for screening for malignant neoplasm of colon

== ENCOUNTER → 2019-01-11 | Outpatient (CLI) | payer OTHER ==
--- NOTE | 2019-01-11 10:05 | REPMRS ---
Patient History The patient states she had a clinical breast exam in November 2018. Patient is postmenopausal and had first child at age 29. Family history of ovarian cancer at age 50 or over in paternal aunt, ovarian cancer at age 50 or over in paternal grandmother. 3D TOMOSYNTHESIS WAS PERFORMED. Digital Mammo Screening Bilat: January 11, 2019 - Exam #: [id number] Bilateral CC and MLO view(s) were taken. Technologist: Noa Jones, Technologist No prior studies available for comparison. FINDINGS: The breast tissue is heterogeneously dense. This may lower the sensitivity of mammography. There is no evidence of cancer on this mammogram. Assessment: BI-RADS/ACR category 2 mammogram. Benign Findings. Recommendation Routine screening mammogram of both breasts in 1 year (for women over age 40). This mammogram was interpreted with the aid of an FDA-approved computer-aided dectection system. Electronically Signed By: Brandon Baldwin MD 01/11/19 [id number]
--- NOTE | 2019-01-12 04:13 | REP ---
Clinical: Dyspareunia . Technique: Transabdominal pelvic ultrasound followed by transvaginal examination for better evaluation of the endometrium and adnexa. Findings: Bladder is unremarkable and measures 5.2 x 2.6 x 3.5 cm . Normal anteverted uterus measures 6.5 x 2.5 x 3.9 cm . The endometrial complex measures 3.6 mm thickness. No discrete uterine or endometrial abnormalities are appreciated. Right ovary is normal and measures 1.9 x 1.2 x 1.9 cm. Left ovary is not visualized. No pelvic fluid or adnexal mass lesion . Impression: 1. essentially normal uterus and right ovary. Left ovary not visualized. Electronically Signed by Vinnie Genao MD 01/12/2019 04:04 A
== END ==
LOC: M RAD 07:49
PROVIDERS: ATTEND Advanced Practice Midwife
DX: N94.12 Deep dyspareunia (principal)

== ENCOUNTER 2019-02-16 01:26 | Emergency (ER) | payer OTHER ==
[~2019-02-16] VITALS: Ht 158.8 cm; Wt 52.8 kg
[2019-02-16 01:26] VITALS: BP 118/68
[2019-02-16] MEDS ORDERED: DOXY100C37 PO (03:11)
[2019-02-16] MEDS ORDERED: DOXYCYCLINE HYCLATE 100 MG TAB PO ONE (03:15)
== END 2019-02-16 03:17 | disposition home or self-care (01) ==
LOC: M ED 01:26
DX: L03.115 Cellulitis of right lower limb (principal); Z88.8 Allergy status to other drugs, medicaments and biological substances; F17.210 Nicotine dependence, cigarettes, uncomplicated

== ENCOUNTER → 2019-02-19 | Outpatient (REF) | payer OTHER ==
[~2019-02-19] MED LIST changes: +DOXY100C37 PO
[2019-02-19 13:31] LABS: ALBUMIN 3.4 GM/DL (3.2-5.2); ALT/SGPT 29 U/L (12-78); BILIRUBIN,TOTAL 0.3 MG/DL (0.2-1.0); BLOOD UREA NITROGEN 12 MG/DL (7-18); CARBON DIOXIDE LEVEL 27 MEQ/L (21-32); CHLORIDE LEVEL 109 MEQ/L (98-107); CHOLESTEROL LEVEL 218 MG/DL (<200); CREATININE FOR GFR 0.64 MG/DL (0.55-1.30); GLOMERULAR FILTRATION RATE > 60.0 (>51); GLUCOSE, FASTING 88 MG/DL (70-100); HDL CHOLESTEROL 50 MG/DL (>40); LDL CHOLESTEROL 130 MG/DL (<100); NON-HDL-C 168 MG/DL; SODIUM LEVEL 143 MEQ/L (136-145); TOTAL PROTEIN 6.7 GM/DL (6.4-8.2); TRIGLYCERIDES LEVEL 192 MG/DL (<150)
[2019-02-19 13:51] LABS: HEMOGLOBIN A1c 6.1 %
== END ==
LOC: M LAB REF 12:48
PROVIDERS: ATTEND Family Medicine
DX: R73.03 Prediabetes (principal); E78.49 Other hyperlipidemia

== ENCOUNTER 2019-05-16 07:48 | Emergency (ER) | payer OTHER ==
[~2019-05-16] VITALS: Ht 160 cm; Wt 54.5 kg
[~2019-05-16 07:48] MED LIST changes: +CHOL100029 PO; -VITAD1000T PO
[2019-05-16] MEDS ORDERED: IBUP-1022 PO (07:56)
[2019-05-16] MEDS ORDERED: ESCI10TA2 (07:56)
[2019-05-16] MEDS ORDERED: ATOR1TAB19 (07:56)
[2019-05-16] MEDS ORDERED: CYCLOBENZAPRINE 5MG TABLET PO ONE (08:45)
[2019-05-16] MEDS ORDERED: ACETAMINOPHEN TAB 650MG DOSE (2X325MG) PO ONE (08:45)
[2019-05-16] MEDS ORDERED: LIDOCAINE 5% (LIDODERM) PATCH TD ONE (10:30)
[2019-05-16] MEDS ORDERED: LIDO5DIS41 TD (12:05)
[2019-05-16] MEDS ORDERED: BACL10TA2 PO (12:09)
[2019-05-16 12:22] VITALS: BP 127/78
[2019-05-16] MEDS ORDERED: **NOTE PATIENT COMMENT** MISC XX SCH (21:00)
== END 2019-05-16 12:24 | disposition home or self-care (01) ==
LOC: M ED 07:48
DX: M62.830 Muscle spasm of back (principal); E78.00 Pure hypercholesterolemia, unspecified; E11.9 Type 2 diabetes mellitus without complications; G43.909 Migraine, unspecified, not intractable, without status migrainosus; F41.9 Anxiety disorder, unspecified; F17.210 Nicotine dependence, cigarettes, uncomplicated; Z88.8 Allergy status to other drugs, medicaments and biological substances; Z79.899 Other long term (current) drug therapy

== ENCOUNTER → 2019-05-22 | Outpatient (REF) | payer OTHER, MEDICAID ==
[~2019-05-22] MED LIST changes: +ATOR1TAB19; +BACL10TA2 PO; +ESCI10TA2; +IBUP-1022 PO; +LIDO5DIS41 TD
[2019-05-22 12:36] LABS: ALBUMIN 3.6 GM/DL (3.2-5.2); ALT/SGPT 45 U/L (12-78); BILIRUBIN,TOTAL 0.5 MG/DL (0.2-1.0); BLOOD UREA NITROGEN 9 MG/DL (7-18); CALCIUM LEVEL 9.2 MG/DL (8.5-10.1); CARBON DIOXIDE LEVEL 29 MEQ/L (21-32); CHLORIDE LEVEL 107 MEQ/L (98-107); CHOLESTEROL LEVEL 283 MG/DL (<200); CHOLESTEROL RISK RATIO 5.442 (<5); CREATININE FOR GFR 0.63 MG/DL (0.55-1.30); GLOMERULAR FILTRATION RATE > 60.0 (>51); GLUCOSE, FASTING 82 MG/DL (70-100); HDL CHOLESTEROL 52 MG/DL (>40); LDL CHOLESTEROL 192 MG/DL (<100); NON-HDL-C 231 MG/DL; POTASSIUM SERUM 3.9 MEQ/L (3.5-5.1); SODIUM LEVEL 141 MEQ/L (136-145); TOTAL PROTEIN 7.1 GM/DL (6.4-8.2); TRIGLYCERIDES LEVEL 197 MG/DL (<150)
== END ==
LOC: M LAB REF 11:55
PROVIDERS: ATTEND Family Medicine
DX: E78.49 Other hyperlipidemia (principal); R73.03 Prediabetes

== ENCOUNTER → 2019-09-03 | Outpatient (CLI) | payer OTHER, MEDICAID ==
[~2019-09-03] MED LIST changes: -MECL-68 PO; +MECL1TAB31 PO
[2019-09-03 11:58] LABS: BASO % 0.5 % (0.0-1.0); EOS # 0.2 10^3/uL (0.0-0.5); EOS % 3.2 % (0.0-3.0); HEMATOCRIT 42.5 % (36.0-47.0); HEMOGLOBIN 13.9 g/dl (12.0-15.5); LYMPH # 2.7 10^3/uL (1.5-5.0); LYMPH % 41.4 % (24.0-44.0); MEAN CORPUSCULAR HEMOGLOBIN 30.7 pg (27.0-33.0); MEAN CORPUSCULAR HGB CONC 32.7 g/dl (32.0-36.5); MEAN CORPUSCULAR VOLUME 93.8 fl (80.0-96.0); MONO # 0.4 10^3/uL (0.0-0.8); MONO % 6.6 % (0.0-5.0); NEUTROPHILS # 3.1 10^3/uL (1.5-8.5); NEUTROPHILS % 48.1 % (36.0-66.0); PLATELET COUNT, AUTOMATED 284 10^3/uL (150-450); RED BLOOD COUNT 4.53 10^6/uL (4.00-5.40); WHITE BLOOD COUNT 6.5 10^3/uL (4.0-10.0)
[2019-09-03 12:24] LABS: ERYTHROCYTE SEDIMENTATION RATE 27 mm/hr (0-30)
[2019-09-03 12:38] LABS: ALBUMIN 3.6 GM/DL (3.2-5.2); ALT/SGPT 28 U/L (12-78); BILIRUBIN,TOTAL 0.2 MG/DL (0.2-1.0); BLOOD UREA NITROGEN 10 MG/DL (7-18); CARBON DIOXIDE LEVEL 30 MEQ/L (21-32); CHLORIDE LEVEL 109 MEQ/L (98-107); GLOMERULAR FILTRATION RATE > 60.0 (>51); GLUCOSE, FASTING 77 MG/DL (70-100); POTASSIUM SERUM 4.2 MEQ/L (3.5-5.1); RHEUMATOID FACTOR QUANT < 10.0 IU/ML (<15.0); SODIUM LEVEL 142 MEQ/L (136-145); TOTAL 25(OH) VITAMIN D 17.7 NG/ML (30.0-100.0)
[2019-09-05 00:06] LABS: ANTINUCLEAR ANTIBODIES DIRECT Negative (Negative)
== END ==
LOC: M LAB 10:14
PROVIDERS: ATTEND Psychiatry & Neurology Neurology
DX: R51 Headache (principal)

== ENCOUNTER → 2020-01-14 | Outpatient (REF) | payer OTHER ==
[2020-01-14 15:08] LABS: BASO % 0.6 % (0.0-1.0); EOS # 0.1 10^3/uL (0.0-0.5); EOS % 1.8 % (0.0-3.0); HEMATOCRIT 43.6 % (36.0-47.0); HEMOGLOBIN 13.9 g/dl (12.0-15.5); LYMPH # 2.5 10^3/uL (1.5-5.0); LYMPH % 35.7 % (24.0-44.0); MEAN CORPUSCULAR HEMOGLOBIN 29.7 pg (27.0-33.0); MEAN CORPUSCULAR HGB CONC 31.9 g/dl (32.0-36.5); MEAN CORPUSCULAR VOLUME 93.2 fl (80.0-96.0); MONO # 0.4 10^3/uL (0.0-0.8); NEUTROPHILS # 3.9 10^3/uL (1.5-8.5); NEUTROPHILS % 55.6 % (36.0-66.0); PLATELET COUNT, AUTOMATED 281 10^3/uL (150-450); RED BLOOD COUNT 4.68 10^6/uL (4.00-5.40)
[2020-01-14 15:50] LABS: ALBUMIN 3.9 GM/DL (3.2-5.2); ALT/SGPT 43 U/L (12-78); BILIRUBIN,TOTAL 0.3 MG/DL (0.2-1.0); BLOOD UREA NITROGEN 11 MG/DL (7-18); CALCIUM LEVEL 9.2 MG/DL (8.5-10.1); CARBON DIOXIDE LEVEL 30 MEQ/L (21-32); CHLORIDE LEVEL 107 MEQ/L (98-107); CHOLESTEROL LEVEL 312 MG/DL (<200); CHOLESTEROL RISK RATIO 6.117 (<5); CREATININE FOR GFR 0.64 MG/DL (0.55-1.30); FREE T4 1.02 NG/DL (0.76-1.46); GLOMERULAR FILTRATION RATE > 60.0 (>51); GLUCOSE, FASTING 94 MG/DL (70-100); HDL CHOLESTEROL 51 MG/DL (>40); LDL CHOLESTEROL 214 MG/DL (<100); NON-HDL-C 261 MG/DL; POTASSIUM SERUM 4.4 MEQ/L (3.5-5.1); SODIUM LEVEL 141 MEQ/L (136-145); TOTAL PROTEIN 7.9 GM/DL (6.4-8.2); TRIGLYCERIDES LEVEL 233 MG/DL (<150)
== END ==
LOC: M SFHCPLAZ 13:51
PROVIDERS: ATTEND Physician Assistant Medical
DX: N13.2 Hydronephrosis with renal and ureteral calculous obstruction (principal); F41.9 Anxiety disorder, unspecified; F17.210 Nicotine dependence, cigarettes, uncomplicated; Z13.220 Encounter for screening for lipoid disorders

== ENCOUNTER → 2020-02-27 | Outpatient (CLI) | payer OTHER ==
[~2020-02-27] MED LIST changes: +ACET650T61 PO; +ATOR40TA75 PO; +NORT10CA2 PO; -TYLE650T35 PO
== END ==
LOC: M WHC 08:38
PROVIDERS: ATTEND Advanced Practice Midwife
DX: Z12.4 Encounter for screening for malignant neoplasm of cervix (principal); Z12.31 Encounter for screening mammogram for malignant neoplasm of breast

== ENCOUNTER → 2020-04-04 | Outpatient (REF) | payer OTHER | LOC: M LAB REF 16:58 | PROVIDERS: ATTEND Physician Assistant | DX: R39.15 Urgency of urination (principal) ==

== ENCOUNTER 2020-04-14 12:52 | Emergency (ER) | payer OTHER ==
[~2020-04-14] VITALS: Ht 157.5 cm; Wt 56.4 kg
[~2020-04-14 12:52] MED LIST changes: -ATOR40TA75 PO; -NORT10CA2 PO
[2020-04-14 12:53] VITALS: BP 115/73
[2020-04-14] MEDS ORDERED: ATOR40TA75 PO (13:00)
[2020-04-14] MEDS ORDERED: NORT10CA2 PO (13:00)
--- NOTE | 2020-04-14 13:49 | REPVR ---
PROCEDURE INFORMATION: Exam: XR Right Hand Exam date and time: 04/14/2020 1:13 PM Age: 49 years old Clinical indication: Injury or trauma; Fall; Initial encounter; Swelling (edema); Hand; Right; Additional info: Right fourth finger pain and trauma TECHNIQUE: Imaging protocol: XR Right hand. Views: 3 or more views. COMPARISON: CR WRIST COMPLETE 11/28/2013 1:25 PM FINDINGS: Bones/joints: There is no evidence of fracture. Soft tissues: There is soft tissue swelling of the PIP joint of the 4th finger.There is no evidence of a radio-opaque foreign body. IMPRESSION: 1. There is soft tissue swelling of the PIP joint of the 4th finger.There is no evidence of a radio-opaque foreign body. 2. There is no evidence of fracture. Electronically signed by: Fred Paul On 04/14/2020 13:49:03 PM
== END 2020-04-14 14:21 | disposition home or self-care (01) ==
LOC: M ED 12:52
DX: S63.634A Sprain of interphalangeal joint of right ring finger, initial encounter (principal); W23.0XXA Caught, crushed, jammed, or pinched between moving objects, initial encounter; Y92.019 Unspecified place in single-family (private) house as the place of occurrence of the external cause; E11.9 Type 2 diabetes mellitus without complications; F17.200 Nicotine dependence, unspecified, uncomplicated; Z79.899 Other long term (current) drug therapy

== ENCOUNTER → 2020-06-26 | Outpatient (REF) | payer OTHER ==
[~2020-06-26] MED LIST changes: +ATOR40TA75 PO; +NORT10CA2 PO
[2020-06-26 12:31] LABS: ALBUMIN 3.7 GM/DL (3.2-5.2); ALT/SGPT 51 U/L (12-78); BILIRUBIN,TOTAL 0.3 MG/DL (0.2-1.0); BLOOD UREA NITROGEN 8 MG/DL (7-18); CALCIUM LEVEL 9.2 MG/DL (8.5-10.1); CARBON DIOXIDE LEVEL 29 MEQ/L (21-32); CHLORIDE LEVEL 103 MEQ/L (98-107); CHOLESTEROL LEVEL 291 MG/DL (<200); CHOLESTEROL RISK RATIO 6.326 (<5); CPK CREATINE PHOSPHOKINASE 109 U/L (26-192); CREATININE FOR GFR 0.66 MG/DL (0.55-1.30); GLOMERULAR FILTRATION RATE > 60.0 (>51); GLUCOSE, FASTING 80 MG/DL (70-100); HDL CHOLESTEROL 46 MG/DL (>40); LDL CHOLESTEROL 203 MG/DL (<100); NON-HDL-C 245 MG/DL; POTASSIUM SERUM 3.8 MEQ/L (3.5-5.1); SODIUM LEVEL 138 MEQ/L (136-145); TOTAL PROTEIN 7.3 GM/DL (6.4-8.2); TRIGLYCERIDES LEVEL 211 MG/DL (<150)
== END ==
LOC: M SFHCPLAZ 08:31
PROVIDERS: ATTEND Physician Assistant Medical
DX: E78.5 Hyperlipidemia, unspecified (principal)

== ENCOUNTER → 2020-07-08 | Outpatient (CLI) | payer SELFPAY | LOC: M LABSMTC 12:33 | PROVIDERS: ATTEND Pediatrics | DX: Z20.828 Contact with and (suspected) exposure to other viral communicable diseases (principal) ==

== ENCOUNTER → 2020-10-06 | Outpatient (REF) | payer OTHER ==
[~2020-10-06] MED LIST changes: +ESCI10TA16; -ESCI10TA2
[2020-10-06 14:39] LABS: ALBUMIN 3.8 GM/DL (3.2-5.2); ALT/SGPT 81 U/L (12-78); BILIRUBIN,TOTAL 0.2 MG/DL (0.2-1.0); BLOOD UREA NITROGEN 8 MG/DL (7-18); CALCIUM LEVEL 9.2 MG/DL (8.5-10.1); CARBON DIOXIDE LEVEL 30 MEQ/L (21-32); CHLORIDE LEVEL 105 MEQ/L (98-107); CHOLESTEROL LEVEL 247 MG/DL (<200); CHOLESTEROL RISK RATIO 5.255 (<5); CPK CREATINE PHOSPHOKINASE 94 U/L (26-192); CREATININE FOR GFR 0.62 MG/DL (0.55-1.30); GLOMERULAR FILTRATION RATE > 60.0 (>51); GLUCOSE, FASTING 91 MG/DL (70-100); HDL CHOLESTEROL 47 MG/DL (>40); LDL CHOLESTEROL 137 MG/DL (<100); NON-HDL-C 200 MG/DL; POTASSIUM SERUM 4.7 MEQ/L (3.5-5.1); SODIUM LEVEL 139 MEQ/L (136-145); TOTAL PROTEIN 7.5 GM/DL (6.4-8.2); TRIGLYCERIDES LEVEL 317 MG/DL (<150)
[2020-10-06 15:11] LABS: CA 125 4.9 U/ML (<30.2)
== END ==
LOC: M SFHCPLAZ 12:08
PROVIDERS: ATTEND Physician Assistant Medical
DX: E78.5 Hyperlipidemia, unspecified (principal); R14.0 Abdominal distension (gaseous)

== ENCOUNTER → 2020-11-07 | Outpatient (CLI) | payer OTHER ==
--- NOTE | 2020-11-07 17:21 | REP ---
INDICATION: PAIN. COMPARISON: None. TECHNIQUE: AP and lateral. FINDINGS: There is no compression fracture. There is no prevertebral soft tissue swelling. There is moderate anterior posterior spurring of C4. There is moderate posterior spurring inferiorly of C5. There is slight retrolisthesis of C4 on C5 and C5 on C6 of a couple mm. There is mild disc space narrowing at C4-5 and moderate narrowing at C5-6. Appears to be mild diffuse arthritic change at the posterior facet joints. IMPRESSION: Degenerative disc changes as above most significantly at C5-6 level. <Electronically signed by Brandon Baldwin > 11/07/20 [id number]
== END ==
LOC: M SOG 12:02
PROVIDERS: ATTEND Orthopaedic Surgery Sports Medicine
DX: M54.12 Radiculopathy, cervical region (principal); M50.322 Other cervical disc degeneration at C5-C6 level

== ENCOUNTER → 2020-11-10 | Outpatient (REF) | payer OTHER ==
[2020-11-10 18:35] LABS: INR 0.84; PROTHROMBIN TIME 11.7 SECONDS (12.5-14.3)
[2020-11-10 18:36] LABS: PARTIAL THROMBOPLASTIN TIME 28.6 SECONDS (24.2-38.5)
[2020-11-10 18:51] LABS: ALBUMIN 3.7 GM/DL (3.2-5.2); ALT/SGPT 51 U/L (12-78); BILIRUBIN,DIRECT < 0.1 MG/DL (0.0-0.2); BILIRUBIN,TOTAL 0.2 MG/DL (0.2-1.0); BLOOD UREA NITROGEN 9 MG/DL (7-18); CALCIUM LEVEL 9.3 MG/DL (8.5-10.1); CARBON DIOXIDE LEVEL 29 MEQ/L (21-32); CHLORIDE LEVEL 106 MEQ/L (98-107); CREATININE FOR GFR 0.56 MG/DL (0.55-1.30); GLOMERULAR FILTRATION RATE > 60.0 (>51); GLUCOSE, FASTING 101 MG/DL (70-100); POTASSIUM SERUM 4.2 MEQ/L (3.5-5.1); SODIUM LEVEL 140 MEQ/L (136-145); TOTAL PROTEIN 7.2 GM/DL (6.4-8.2)
[2020-11-10 18:52] LABS: HEPATITIS B SURFACE ANTIBODY NEGATIVE (POSITIVE)
[2020-11-10 19:03] LABS: HEPATITIS B SURFACE ANTIGEN NEGATIVE (NEGATIVE)
[2020-11-10 19:31] LABS: HEPATITIS C VIRUS ABY INDEX 0.1 INDEX (<0.8)
[2020-11-10 19:33] LABS: HEPATITIS A ANTIBODY IGM NEGATIVE (NEGATIVE)
[2020-11-13 16:11] LABS: AFP TUMOR TOTAL 4.5 ng/mL (0.0-8.0); HEPATITIS A IgG TOTAL Negative (Negative)
== END ==
LOC: M PLALAB 14:12
PROVIDERS: ATTEND Physician Assistant Medical
DX: R79.89 Other specified abnormal findings of blood chemistry (principal)

== ENCOUNTER → 2020-11-10 | Outpatient (CLI) | payer OTHER ==
--- NOTE | 2020-11-11 02:20 | REPPI ---
INDICATION: GANGLION CYST COMPARISON: None. TECHNIQUE: AP, lateral, bilateral oblique views right wrist. FINDINGS: Oblique and lateral views suggest an area of focal soft tissue prominence along the lateral aspect of the distal radius. No associated subcutaneous emphysema or calcifications are identified. The carpal bones and associated joint spaces are essentially intact and age-appropriate. No evidence for acute fracture or dislocation. IMPRESSION: Subtle soft tissue prominence along the anterolateral aspect of the distal radius without associated calcification or subcutaneous emphysema. <Electronically signed by Vinnie Genao > 11/11/20 [id number]
== END ==
LOC: M PLAIMG 14:12
PROVIDERS: ATTEND Physician Assistant Medical
DX: R22.31 Localized swelling, mass and lump, right upper limb (principal)

== ENCOUNTER → 2020-12-02 | Outpatient (REF) | payer OTHER ==
[2020-12-02 13:20] LABS: APPEARANCE, URINE CLOUDY (CLEAR); BACTERIA, URINE AUTO 1+ (NEGATIVE); BILIRUBIN, URINE AUTO NEGATIVE (NEGATIVE); BLOOD, URINE BLOOD NEGATIVE (NEGATIVE); COLOR, URINE AMBER (YELLOW); GLUCOSE, URINE (UA) AUTO NEGATIVE (NEGATIVE); KETONE, URINE AUTO NEGATIVE (NEGATIVE); LEUKOCYTE ESTERASE, URINE AUTO 3+ (NEGATIVE); MUCUS, URINE LARGE (NEGATIVE); NITRITE, URINE AUTO NEGATIVE (NEGATIVE); PROTEIN, URINE AUTO 1+ mg/dL (NEGATIVE); RBC, URINE AUTO 23 /HPF (0-3); SQUAMOUS EPITHELIAL CELL UR AU 9 /HPF (0-6); TRANSITIONAL EPITHELIAL AUTO 5 /HPF; WBC, URINE AUTO 70 /HPF (0-3)
== END ==
LOC: M SFHCPLAZ 12:59
PROVIDERS: ATTEND Physician Assistant Medical
DX: R30.0 Dysuria (principal)

== ENCOUNTER → 2020-12-02 | Outpatient (CLI) | payer OTHER ==
--- NOTE | 2020-12-02 09:27 | REP ---
INDICATION: R79.89 ELEVTAED LFTs. FINDINGS: Multiple ultrasonographic images of the liver show diffuse increased echoes throughout the hepatic parenchyma without evidence of a mass or ductal dilatation. Two 2 cm sized areas of decreased echoes were seen 1 in the region of the estuardo hepatis and the other in the region of the gallbladder fossa. The common bile duct measures approximately 2.5 mm in its greatest transverse dimension. Multiple ultrasonographic images of the gallbladder show no focal or diffuse gallbladder wall thickening. There are no echogenic foci within the gallbladder lumen, which casts acoustic shadows. There is no pericholecystic edema. Images of the pancreatic region show no gross abnormality. The imaged portion of the right kidney is unremarkable. IMPRESSION: Fatty infiltration of the liver with 2 hypoechoic areas likely representing focal sparing. Accredited by the [employer] in General Ultrasound. <Electronically signed by Roderick Carney > 12/02/20 [id number]
== END ==
LOC: M WHC 07:48
PROVIDERS: ATTEND Physician Assistant Medical
DX: R79.89 Other specified abnormal findings of blood chemistry (principal)

== ENCOUNTER 2021-01-01 11:40 | Outpatient (RCR) | payer OTHER | END 2021-01-05 | LOC: M PT 11:40 | PROVIDERS: ATTEND Orthopaedic Surgery Sports Medicine | DX: G56.03 Carpal tunnel syndrome, bilateral upper limbs (principal) ==

== ENCOUNTER 2021-01-13 13:00 | Outpatient (RCR) | payer OTHER ==
[~2021-01-13 13:00] MED LIST changes: -DOXY100C37 PO; +DOXY1CAP62 PO
== END 2021-02-04 ==
LOC: M PT 13:00
PROVIDERS: ATTEND Orthopaedic Surgery Sports Medicine
DX: G56.03 Carpal tunnel syndrome, bilateral upper limbs (principal)

== ENCOUNTER → 2021-01-15 | Outpatient (REF) | payer OTHER ==
[~2021-01-15] MED LIST changes: +DOXY100C37 PO; -DOXY1CAP62 PO
[2021-01-15 15:59] LABS: APPEARANCE, URINE CLOUDY (CLEAR); BACTERIA, URINE AUTO 2+ (NEGATIVE); BILIRUBIN, URINE AUTO NEGATIVE (NEGATIVE); BLOOD, URINE BLOOD 1+ (NEGATIVE); COLOR, URINE YELLOW (YELLOW); GLUCOSE, URINE (UA) AUTO NEGATIVE (NEGATIVE); KETONE, URINE AUTO NEGATIVE (NEGATIVE); LEUKOCYTE ESTERASE, URINE AUTO 3+ (NEGATIVE); MUCUS, URINE SMALL (NEGATIVE); NITRITE, URINE AUTO POSITIVE (NEGATIVE); PROTEIN, URINE AUTO NEGATIVE (NEGATIVE); RBC, URINE AUTO 5 /HPF (0-3); SPECIFIC GRAVITY URINE AUTO 1.009 (1.002-1.035); SQUAMOUS EPITHELIAL CELL UR AU 5 /HPF (0-6); UROBILINOGEN, URINE AUTO 0.2 mg/dL (0.0-2.0); WBC, URINE AUTO 168 /HPF (0-3)
== END ==
LOC: M SFHCPLAZ 14:58
PROVIDERS: ATTEND Physician Assistant Medical
DX: R30.0 Dysuria (principal)

== ENCOUNTER → 2021-01-16 | Outpatient (REF) | payer OTHER ==
[2021-01-16 15:06] LABS: ALBUMIN 3.8 GM/DL (3.2-5.2); ALT/SGPT 57 U/L (12-78); BILIRUBIN,TOTAL 0.2 MG/DL (0.2-1.0); BLOOD UREA NITROGEN 10 MG/DL (7-18); CALCIUM LEVEL 9.4 MG/DL (8.5-10.1); CARBON DIOXIDE LEVEL 28 MEQ/L (21-32); CHLORIDE LEVEL 108 MEQ/L (98-107); CHOLESTEROL LEVEL 219 MG/DL (<200); CHOLESTEROL RISK RATIO 5.615 (<5); GLOMERULAR FILTRATION RATE > 60.0 (>51); GLUCOSE, FASTING 94 MG/DL (70-100); HDL CHOLESTEROL 39 MG/DL (>40); NON-HDL-C 180 MG/DL; POTASSIUM SERUM 4.3 MEQ/L (3.5-5.1); SODIUM LEVEL 141 MEQ/L (136-145); TOTAL PROTEIN 7.4 GM/DL (6.4-8.2); TRIGLYCERIDES LEVEL 452 MG/DL (<150)
== END ==
LOC: M SFHCPLAZ 10:11
PROVIDERS: ATTEND Physician Assistant Medical
DX: E78.5 Hyperlipidemia, unspecified (principal)

== ENCOUNTER → 2021-02-04 | Outpatient (CLI) | payer OTHER ==
[~2021-02-04] MED LIST changes: -DOXY100C37 PO; +DOXY1CAP62 PO
--- NOTE | 2021-02-04 09:03 | REP ---
INDICATION: HYDRONEPHROSIS WITH RENAL BRYAN OBS COMPARISON: None TECHNIQUE: Real time rivas scale ultrasound examination using curved array transducer followed by color Doppler evaluation of the renal vasculature. FINDINGS: The bilateral kidneys are normal in contour, size, echogenicity, and reniform shape. No hydronephrosis, nephrolithiasis, cystic or renal mass lesion appreciated. Right kidney measures 10.3 x 4.5 x 3.6 cm. Left kidney measures 11.1 x 4.7 x 4.8 cm. Bladder is under distended. Color Doppler evaluation. Peak aortic velocity: 92.5 centimeters/second RIGHT KIDNEY Renal arterial velocity: 147.2 centimeters/second Renal-aortic ratio: 1.6 Intrarenal resistive indices: 0.73-0.78 Intrarenal acceleration times: 0.03-0.03 LEFT KIDNEY Renal arterial velocity: 102.4 centimeters/second Renal-aortic ratio: 1.1 Intrarenal resistive indices: 0.69-0.74 Intrarenal acceleration times: 0.03-0.03 IMPRESSION: 1. Kidneys appear normal. 2. Doppler interegation without sonographic evidence for renal arterial stenosis. <Electronically signed by Vinnie Genao > 02/04/21 [id number]
== END ==
LOC: M RAD 08:11
PROVIDERS: ATTEND Physician Assistant Medical
DX: N13.2 Hydronephrosis with renal and ureteral calculous obstruction (principal)

== ENCOUNTER → 2021-06-08 | Outpatient (CLI) | payer OTHER ==
[~2021-06-08] MED LIST changes: +DOXY-443 PO; -DOXY1CAP62 PO
--- NOTE | 2021-06-08 15:09 | REP ---
INDICATION: FAMILY HX OF ISCHEM HEART DIS AND OTH DIS OF THE CIRC SYS. COMPARISON: 09/26/2016 TECHNIQUE: PA and lateral FINDINGS: The superior mediastinal structures are midline. The cardiac silhouette is unremarkable in size, shape, and position. The diaphragmatic surfaces of the lungs are regular, and the costophrenic angles are clear. The pulmonary fragoso are clear. The imaged osseous structures are intact. IMPRESSION: There is no acute cardiopulmonary disease. <Electronically signed by Roderick Carney > 06/08/21 [id number]
== END ==
LOC: M PLALAB 13:13 → M PLAIMG 13:13
PROVIDERS: ATTEND Physician Assistant Medical
DX: Z82.49 Family history of ischemic heart disease and other diseases of the circulatory system (principal)

== ENCOUNTER → 2021-08-31 | Outpatient (REF) | payer OTHER ==
[~2021-08-31] MED LIST changes: -CITA10TA5; +CITA10TA7
== END ==
LOC: M SFHCPLAZ 16:46
PROVIDERS: ATTEND Physician Assistant
DX: R82.90 Unspecified abnormal findings in urine (principal)

== ENCOUNTER 2021-12-14 14:42 | Emergency (ER) | payer OTHER ==
[~2021-12-14] VITALS: Ht 157.5 cm; Wt 56.8 kg
[2021-12-14] MEDS ORDERED: EZET10TA21 (15:04)
[2021-12-14] MEDS ORDERED: PARO20TA3 (15:04)
[2021-12-14 20:11] VITALS: BP 133/62
== END 2021-12-14 20:13 | disposition home or self-care (01) ==
LOC: M ED 14:42
DX: M25.571 Pain in right ankle and joints of right foot (principal); R22.41 Localized swelling, mass and lump, right lower limb; I10 Essential (primary) hypertension; Z88.1 Allergy status to other antibiotic agents

== ENCOUNTER → 2021-12-29 | Outpatient (REF) | payer OTHER ==
[~2021-12-29] MED LIST changes: +EZET10TA21; +PARO20TA3
[2021-12-29 13:39] LABS: APPEARANCE, URINE HAZY (CLEAR); BACTERIA, URINE AUTO NEGATIVE (NEGATIVE); BILIRUBIN, URINE AUTO NEGATIVE (NEGATIVE); BLOOD, URINE BLOOD 2+ (NEGATIVE); CALCIUM OXALATE CRYSTALS SMALL; COLOR, URINE YELLOW (YELLOW); GLUCOSE, URINE (UA) AUTO NEGATIVE (NEGATIVE); KETONE, URINE AUTO NEGATIVE (NEGATIVE); LEUKOCYTE ESTERASE, URINE AUTO 1+ (NEGATIVE); MUCUS, URINE SMALL (NEGATIVE); NITRITE, URINE AUTO POSITIVE (NEGATIVE); PROTEIN, URINE AUTO NEGATIVE (NEGATIVE); RBC, URINE AUTO 6 /HPF (0-3); SPECIFIC GRAVITY URINE AUTO 1.023 (1.002-1.035); SQUAMOUS EPITHELIAL CELL UR AU 7 /HPF (0-6); UROBILINOGEN, URINE AUTO 0.2 mg/dL (0.0-2.0); WBC, URINE AUTO 28 /HPF (0-3)
== END ==
LOC: M SFHCPLAZ 12:49
PROVIDERS: ATTEND Physician Assistant
DX: R39.9 Unspecified symptoms and signs involving the genitourinary system (principal)

== ENCOUNTER → 2022-01-05 | Outpatient (CLI) | payer OTHER ==
[2022-01-05 17:10] LABS: BASO % 0.6 % (0.0-1.0); EOS # 0.2 10^3/uL (0.0-0.5); EOS % 2.3 % (0.0-3.0); HEMATOCRIT 41.2 % (36.0-47.0); HEMOGLOBIN 13.5 g/dl (12.0-15.5); LYMPH # 2.8 10^3/uL (1.5-5.0); LYMPH % 43.3 % (24.0-44.0); MEAN CORPUSCULAR HGB CONC 32.8 g/dl (32.0-36.5); MEAN CORPUSCULAR VOLUME 91.6 fl (80.0-96.0); MONO # 0.5 10^3/uL (0.0-0.8); MONO % 7.2 % (2.0-8.0); NEUTROPHILS % 46.3 % (36.0-66.0); PLATELET COUNT, AUTOMATED 277 10^3/uL (150-450); WHITE BLOOD COUNT 6.5 10^3/uL (4.0-10.0)
[2022-01-05 17:36] LABS: ALBUMIN 3.6 GM/DL (3.2-5.2); ALT/SGPT 47 U/L (12-78); BILIRUBIN,TOTAL 0.3 MG/DL (0.2-1.0); BLOOD UREA NITROGEN 9 MG/DL (7-18); C REACTIVE PROTEIN QUANTITATIV 0.31 MG/DL (0.00-0.30); CALCIUM LEVEL 9.8 MG/DL (8.5-10.1); CARBON DIOXIDE LEVEL 30 MEQ/L (21-32); CHLORIDE LEVEL 107 MEQ/L (98-107); CREATININE FOR GFR 0.66 MG/DL (0.55-1.30); GLOMERULAR FILTRATION RATE > 60.0 (>51); GLUCOSE, FASTING 92 MG/DL (70-100); POTASSIUM SERUM 4.1 MEQ/L (3.5-5.1); RHEUMATOID FACTOR QUANT < 10.0 IU/ML (<15.0); SODIUM LEVEL 141 MEQ/L (136-145); TOTAL PROTEIN 7.2 GM/DL (6.4-8.2); URIC ACID 4.9 MG/DL (2.6-6.0)
[2022-01-05 18:14] LABS: ERYTHROCYTE SEDIMENTATION RATE 25 mm/hr (0-30)
[2022-01-08 00:07] LABS: ANA (HEP2) Positive (.); CYCLIC CITRULLINATED PEPTIDE 4 units (0-19)
== END ==
LOC: M PLALAB 14:09
PROVIDERS: ATTEND Physician Assistant
DX: M25.50 Pain in unspecified joint (principal)

== ENCOUNTER → 2022-01-05 | Outpatient (REF) | payer OTHER ==
[2022-01-05 17:34] LABS: APPEARANCE, URINE HAZY (CLEAR); BACTERIA, URINE AUTO NEGATIVE (NEGATIVE); BILIRUBIN, URINE AUTO NEGATIVE (NEGATIVE); BLOOD, URINE BLOOD 1+ (NEGATIVE); COLOR, URINE YELLOW (YELLOW); GLUCOSE, URINE (UA) AUTO NEGATIVE (NEGATIVE); KETONE, URINE AUTO NEGATIVE (NEGATIVE); LEUKOCYTE ESTERASE, URINE AUTO 1+ (NEGATIVE); MUCUS, URINE SMALL (NEGATIVE); NITRITE, URINE AUTO NEGATIVE (NEGATIVE); PROTEIN, URINE AUTO NEGATIVE (NEGATIVE); RBC, URINE AUTO 2 /HPF (0-3); SPECIFIC GRAVITY URINE AUTO 1.009 (1.002-1.035); SQUAMOUS EPITHELIAL CELL UR AU 4 /HPF (0-6); UROBILINOGEN, URINE AUTO 0.2 mg/dL (0.0-2.0); WBC, URINE AUTO 2 /HPF (0-3)
== END ==
LOC: M SFHCPLAZ 16:49
PROVIDERS: ATTEND Physician Assistant
DX: R31.9 Hematuria, unspecified (principal)

== ENCOUNTER → 2022-01-28 | Outpatient (CLI) | payer OTHER ==
[2022-01-28 16:43] LABS: BASO % 0.6 % (0.0-1.0); EOS # 0.2 10^3/uL (0.0-0.5); EOS % 2.2 % (0.0-3.0); HEMATOCRIT 42.4 % (36.0-47.0); HEMOGLOBIN 13.8 g/dl (12.0-15.5); LYMPH # 3.1 10^3/uL (1.5-5.0); LYMPH % 42.6 % (24.0-44.0); MEAN CORPUSCULAR HEMOGLOBIN 30.1 pg (27.0-33.0); MEAN CORPUSCULAR HGB CONC 32.5 g/dl (32.0-36.5); MEAN CORPUSCULAR VOLUME 92.4 fl (80.0-96.0); MONO # 0.4 10^3/uL (0.0-0.8); NEUTROPHILS # 3.5 10^3/uL (1.5-8.5); NEUTROPHILS % 48.5 % (36.0-66.0); PLATELET COUNT, AUTOMATED 268 10^3/uL (150-450); RED BLOOD COUNT 4.59 10^6/uL (4.00-5.40); WHITE BLOOD COUNT 7.2 10^3/uL (4.0-10.0)
[2022-01-28 16:46] LABS: APPEARANCE, URINE CLEAR (CLEAR); BACTERIA, URINE AUTO NEGATIVE (NEGATIVE); BILIRUBIN, URINE AUTO NEGATIVE (NEGATIVE); BLOOD, URINE BLOOD 1+ (NEGATIVE); COLOR, URINE YELLOW (YELLOW); GLUCOSE, URINE (UA) AUTO NEGATIVE (NEGATIVE); KETONE, URINE AUTO NEGATIVE (NEGATIVE); LEUKOCYTE ESTERASE, URINE AUTO TRACE (NEGATIVE); MUCUS, URINE SMALL (NEGATIVE); NITRITE, URINE AUTO NEGATIVE (NEGATIVE); PROTEIN, URINE AUTO NEGATIVE (NEGATIVE); RBC, URINE AUTO 0 /HPF (0-3); SPECIFIC GRAVITY URINE AUTO 1.015 (1.002-1.035); SQUAMOUS EPITHELIAL CELL UR AU 2 /HPF (0-6); UROBILINOGEN, URINE AUTO 0.2 mg/dL (0.0-2.0); WBC, URINE AUTO 1 /HPF (0-3)
[2022-01-28 16:49] LABS: ALT/SGPT 66 U/L (12-78); BILIRUBIN,TOTAL 0.3 MG/DL (0.2-1.0); BLOOD UREA NITROGEN 9 MG/DL (7-18); CALCIUM LEVEL 9.9 MG/DL (8.5-10.1); CARBON DIOXIDE LEVEL 27 MEQ/L (21-32); CHLORIDE LEVEL 107 MEQ/L (98-107); CREATININE FOR GFR 0.61 MG/DL (0.55-1.30); GLOMERULAR FILTRATION RATE > 60.0 (>51); GLUCOSE, FASTING 87 MG/DL (70-100); POTASSIUM SERUM 4.7 MEQ/L (3.5-5.1); SODIUM LEVEL 139 MEQ/L (136-145); TOTAL PROTEIN 7.5 GM/DL (6.4-8.2)
[2022-01-28 18:57] LABS: ACETAMINOPHEN LEVEL < 2.0 UG/ML (10.0-30.0)
== END ==
LOC: M RAD 15:13
PROVIDERS: ATTEND Physician Assistant Medical
DX: N13.2 Hydronephrosis with renal and ureteral calculous obstruction (principal)

== ENCOUNTER → 2022-02-16 | Outpatient (CLI) | payer OTHER | LOC: M LAB 11:22 | PROVIDERS: ATTEND Physician Assistant | DX: K29.00 Acute gastritis without bleeding (principal); K52.9 Noninfective gastroenteritis and colitis, unspecified ==

== ENCOUNTER → 2022-04-13 | Outpatient (REF) | payer OTHER ==
[2022-04-13 17:49] LABS: APPEARANCE, URINE MANUAL CLEAR (CLEAR); COLOR, URINE MANUAL LT YELLOW (YELLOW)
[2022-04-13 17:50] LABS: BILIRUBIN, URINE MANUAL NEGATIVE (NEGATIVE); BLOOD URINE MANUAL NEGATIVE (NEGATIVE); GLUCOSE, URINE (UA) MANUAL NEGATIVE (NEGATIVE); KETONE, URINE MANUAL NEGATIVE (NEGATIVE); LEUKOCYTE ESTERASE, URINE MAN NEGATIVE (NEGATIVE); NITRITE, URINE MANUAL NEGATIVE (NEGATIVE); PH,URINE MAN 6.5 UNITS (5.0 - 7.0); PROTEIN, URINE MANUAL NEGATIVE (NEGATIVE); SPECIFIC GRAVITY,URINE MANUAL 1.005 (1.002-1.035); UROBILINOGEN, URINE MANUAL NORMAL (NORMAL)
== END ==
LOC: M SFHCPLAZ 17:14
PROVIDERS: ATTEND Physician Assistant
DX: R30.0 Dysuria (principal)

== ENCOUNTER → 2022-06-11 | Outpatient (CLI) | payer OTHER ==
[2022-06-11 17:27] LABS: BASO % 0.5 % (0.0-1.0); EOS # 0.2 10^3/uL (0.0-0.5); EOS % 1.8 % (0.0-3.0); HEMATOCRIT 40.9 % (36.0-47.0); HEMOGLOBIN 13.5 g/dl (12.0-15.5); LYMPH # 2.8 10^3/uL (1.5-5.0); LYMPH % 33.3 % (24.0-44.0); MEAN CORPUSCULAR HEMOGLOBIN 30.3 pg (27.0-33.0); MEAN CORPUSCULAR VOLUME 91.9 fl (80.0-96.0); MONO # 0.7 10^3/uL (0.0-0.8); MONO % 7.9 % (2.0-8.0); NEUTROPHILS # 4.8 10^3/uL (1.5-8.5); NEUTROPHILS % 56.3 % (36.0-66.0); PLATELET COUNT, AUTOMATED 258 10^3/uL (150-450); RED BLOOD COUNT 4.45 10^6/uL (4.00-5.40); WHITE BLOOD COUNT 8.5 10^3/uL (4.0-10.0)
[2022-06-11 17:59] LABS: C REACTIVE PROTEIN QUANTITATIV 0.6 MG/DL (0.00-0.30); PERCENT SATURATION 29.9 % (13.2-45.0)
[2022-06-11 18:08] LABS: ERYTHROCYTE SEDIMENTATION RATE 39 mm/hr (0-30)
== END ==
LOC: M PLALAB 14:40
PROVIDERS: ATTEND Internal Medicine Gastroenterology
DX: R19.4 Change in bowel habit (principal)

== ENCOUNTER → 2022-06-17 | Outpatient (REF) | payer OTHER ==
[2022-06-17 18:16] LABS: APPEARANCE, URINE MANUAL CLEAR (CLEAR); BILIRUBIN, URINE MANUAL NEGATIVE (NEGATIVE); BLOOD URINE MANUAL TRACE (NEGATIVE); COLOR, URINE MANUAL YELLOW (YELLOW); GLUCOSE, URINE (UA) MANUAL NEGATIVE (NEGATIVE); KETONE, URINE MANUAL NEGATIVE (NEGATIVE); LEUKOCYTE ESTERASE, URINE MAN TRACE (NEGATIVE); NITRITE, URINE MANUAL POSITIVE (NEGATIVE); PROTEIN, URINE MANUAL NEGATIVE (NEGATIVE); SPECIFIC GRAVITY,URINE MANUAL 1.015 (1.002-1.035); UROBILINOGEN, URINE MANUAL NORMAL (NORMAL)
[2022-06-17 20:12] LABS: BACTERIA, URINE LARGE AMOUNT; SQUAMOUS EPITHELIAL CELL URINE SMALL AMOUNT /hpf (SMALL AMT)
== END ==
LOC: M SFHCPLAZ 17:37
PROVIDERS: ATTEND Physician Assistant Medical
DX: R82.90 Unspecified abnormal findings in urine (principal)

== ENCOUNTER → 2022-08-12 | Outpatient (CLI) | payer OTHER ==
[~2022-08-12] MED LIST changes: +E-Z-PAQUE 96% w/w SUSP 176GM BTL As Ordered ONE
== END ==
LOC: M RAD 07:46
PROVIDERS: ATTEND Internal Medicine Gastroenterology
DX: R19.4 Change in bowel habit (principal)

== ENCOUNTER → 2022-11-16 | Outpatient (REF) | payer OTHER ==
[~2022-11-16] MED LIST changes: -E-Z-PAQUE 96% w/w SUSP 176GM BTL As Ordered ONE
== END ==
LOC: M SFHCPLAZ 16:51
PROVIDERS: ATTEND Physician Assistant
DX: J02.9 Acute pharyngitis, unspecified (principal)

== ENCOUNTER 2023-04-16 15:31 | Emergency (ER) | payer OTHER ==
[~2023-04-16] VITALS: Ht 160 cm; Wt 59.1 kg
[~2023-04-16 15:31] MED LIST changes: +MECL-209 PO; -MECL1TAB31 PO
[2023-04-16] MEDS ORDERED: SIME80TA16 (16:00)
[2023-04-16] MEDS ORDERED: ACETAMINOPHEN 325 MG TAB PO ONE (20:15)
[2023-04-16] MEDS ORDERED: diazePAM 5MG TABLET PO ONE (20:15)
[2023-04-16] MEDS ORDERED: CYCL-707 PO (20:25)
[2023-04-16 20:56] VITALS: BP 148/79; TEMP 96.6; O2SAT 100
== END 2023-04-16 20:57 | disposition home or self-care (01) ==
LOC: M ED 15:31
DX: M50.30 Other cervical disc degeneration, unspecified cervical region (principal); M62.830 Muscle spasm of back; I10 Essential (primary) hypertension; Z87.442 Personal history of urinary calculi; F17.200 Nicotine dependence, unspecified, uncomplicated; Z88.6 Allergy status to analgesic agent; Z79.3 Long term (current) use of hormonal contraceptives

== ENCOUNTER → 2023-04-25 | Outpatient (CLI) | payer OTHER ==
[~2023-04-25] MED LIST changes: +CYCL-707 PO; +SIME80TA16
[2023-04-25 20:34] LABS: BASO # 0.1 10^3/uL (0.0-0.2); BASO % 0.8 % (0.0-1.0); EOS # 0.1 10^3/uL (0.0-0.5); EOS % 1.9 % (0.0-3.0); HEMOGLOBIN 14.1 g/dl (12.0-15.5); LYMPH # 2.8 10^3/uL (1.5-5.0); LYMPH % 44.1 % (24.0-44.0); MEAN CORPUSCULAR HEMOGLOBIN 30.5 pg (27.0-33.0); MEAN CORPUSCULAR HGB CONC 32.8 g/dl (32.0-36.5); MEAN CORPUSCULAR VOLUME 92.9 fl (80.0-96.0); MONO # 0.4 10^3/uL (0.0-0.8); MONO % 5.7 % (2.0-8.0); NEUTROPHILS % 47.3 % (36.0-66.0); PLATELET COUNT, AUTOMATED 235 10^3/uL (150-450); RED BLOOD COUNT 4.63 10^6/uL (4.00-5.40); WHITE BLOOD COUNT 6.4 10^3/uL (4.0-10.0)
[2023-04-25 21:12] LABS: ALBUMIN 3.7 G/DL (3.2-5.2); ALKALINE PHOSPHATASE 97 U/L (46-116); ALT/SGPT 37 U/L (7.0-40); AST/SGOT 24 U/L (<34); BILIRUBIN,TOTAL 0.3 MG/DL (0.3-1.2); BLOOD UREA NITROGEN 10 MG/DL (9-23); CARBON DIOXIDE LEVEL 28 MMOL/L (20-31); CHLORIDE LEVEL 106 MMOL/L (98-107); CHOLESTEROL LEVEL 245 MG/DL (<200); CHOLESTEROL RISK RATIO 4.73 (<5); CREATININE FOR GFR 0.58 MG/DL (0.55-1.30); GLOMERULAR FILTRATION RATE > 60.0 (>51); GLUCOSE, FASTING 84 MG/DL (60-100); HDL CHOLESTEROL 51.7 MG/DL (>40); LDL CHOLESTEROL 160.9 MG/DL (<100); NON-HDL-C 193.3 MG/DL; POTASSIUM SERUM 4.2 MMOL/L (3.5-5.1); SODIUM LEVEL 139 MMOL/L (136-145); TOTAL PROTEIN 6.9 G/DL (5.7-8.2); TRIGLYCERIDES LEVEL 162 MG/DL (<150)
[2023-04-25 21:14] LABS: FREE T4 1.08 NG/DL (0.89-1.76); THYROID STIMULATING HORMONE 1.307 uIU/ML (0.55-4.78)
== END ==
LOC: M PLALAB 14:53
PROVIDERS: ATTEND Physician Assistant Medical
DX: E78.5 Hyperlipidemia, unspecified (principal)

== ENCOUNTER → 2023-06-09 | Outpatient (CLI) | payer OTHER | LOC: M SOG 12:52 | PROVIDERS: ATTEND Physician Assistant | DX: M79.642 Pain in left hand (principal) ==

== ENCOUNTER → 2024-01-27 | Outpatient (CLI) | payer OTHER ==
[~2024-01-27] MED LIST changes: +DOXY-323 PO; -DOXY-443 PO
[2024-01-27 15:27] LABS: BASO # 0.1 10^3/uL (0.0-0.2); BASO % 0.6 % (0.0-1.0); EOS # 0.2 10^3/uL (0.0-0.5); EOS % 1.9 % (0.0-3.0); HEMATOCRIT 44.1 % (36.0-47.0); HEMOGLOBIN 14.4 g/dl (12.0-15.5); LYMPH # 2.9 10^3/uL (1.5-5.0); LYMPH % 37.2 % (24.0-44.0); MEAN CORPUSCULAR HEMOGLOBIN 30.1 pg (27.0-33.0); MEAN CORPUSCULAR HGB CONC 32.7 g/dl (32.0-36.5); MEAN CORPUSCULAR VOLUME 92.3 fl (80.0-96.0); MONO # 0.5 10^3/uL (0.0-0.8); MONO % 6.9 % (2.0-8.0); NEUTROPHILS # 4.1 10^3/uL (1.5-8.5); NEUTROPHILS % 53.1 % (36.0-66.0); PLATELET COUNT, AUTOMATED 258 10^3/uL (150-450); RED BLOOD COUNT 4.78 10^6/uL (4.00-5.40); WHITE BLOOD COUNT 7.8 10^3/uL (4.0-10.0)
[2024-01-27 15:33] LABS: ERYTHROCYTE SEDIMENTATION RATE 32 mm/hr (0-30)
[2024-01-27 15:48] LABS: C REACTIVE PROTEIN QUANTITATIV < 0.40 MG/DL (<1.0)
[2024-01-27 15:49] LABS: RHEUMATOID FACTOR QUANT 4.6 IU/ML (<14)
[2024-01-27 15:50] LABS: ALBUMIN 3.9 G/DL (3.2-5.2); ALKALINE PHOSPHATASE 91 U/L (46-116); ALT/SGPT 35 U/L (7.0-40); AST/SGOT 19 U/L (<34); BILIRUBIN,TOTAL 0.5 MG/DL (0.3-1.2); BLOOD UREA NITROGEN 8 MG/DL (9-23); CALCIUM LEVEL 9.6 MG/DL (8.5-10.1); CARBON DIOXIDE LEVEL 30 MMOL/L (20-31); CHLORIDE LEVEL 108 MMOL/L (98-107); CHOLESTEROL LEVEL 247 MG/DL (<200); CHOLESTEROL RISK RATIO 4.55 (<5); CPK CREATINE PHOSPHOKINASE 135 U/L (34-145); CREATININE FOR GFR 0.57 MG/DL (0.55-1.30); GLOMERULAR FILTRATION RATE > 60.0 (>51); GLUCOSE, FASTING 83 MG/DL (60-100); HDL CHOLESTEROL 54.2 MG/DL (>40); LDL CHOLESTEROL 136.4 MG/DL (<100); MAGNESIUM LEVEL 1.7 MG/DL (1.8-2.4); NON-HDL-C 192.8 MG/DL; POTASSIUM SERUM 4.3 MMOL/L (3.5-5.1); SODIUM LEVEL 141 MMOL/L (136-145); TOTAL PROTEIN 7.2 G/DL (5.7-8.2); TRIGLYCERIDES LEVEL 282 MG/DL (<150)
[2024-01-29 13:02] LABS: CYCLIC CITRULLINATED PEPTIDE < 16 UNITS (<20)
[2024-01-30 11:33] LABS: ANA SCREEN, IFA NEGATIVE (NEGATIVE)
== END ==
LOC: M PLALAB 14:06
PROVIDERS: ATTEND Physician Assistant Medical
DX: M25.551 Pain in right hip (principal); E78.5 Hyperlipidemia, unspecified; R25.2 Cramp and spasm; M25.552 Pain in left hip

== ENCOUNTER 2024-02-10 15:52 | Emergency (ER) | payer OTHER ==
[~2024-02-10] VITALS: Ht 160 cm; Wt 54.5 kg
[2024-02-10] MEDS ORDERED: PANT40TA29 (16:02)
[2024-02-10 17:20] LABS: BASO % 0.3 % (0.0-1.0); EOS # 0.1 10^3/uL (0.0-0.5); EOS % 0.9 % (0.0-3.0); HEMATOCRIT 39.8 % (36.0-47.0); HEMOGLOBIN 13.3 g/dl (12.0-15.5); LYMPH # 2.3 10^3/uL (1.5-5.0); LYMPH % 22.4 % (24.0-44.0); MEAN CORPUSCULAR HEMOGLOBIN 30.6 pg (27.0-33.0); MEAN CORPUSCULAR HGB CONC 33.4 g/dl (32.0-36.5); MEAN CORPUSCULAR VOLUME 91.5 fl (80.0-96.0); MONO # 0.6 10^3/uL (0.0-0.8); MONO % 6.1 % (2.0-8.0); NEUTROPHILS % 69.9 % (36.0-66.0); PLATELET COUNT, AUTOMATED 219 10^3/uL (150-450); RED BLOOD COUNT 4.35 10^6/uL (4.00-5.40); WHITE BLOOD COUNT 10.1 10^3/uL (4.0-10.0)
[2024-02-10 17:45] LABS: LIPASE 41 U/L (12-53)
[2024-02-10 17:47] LABS: ALBUMIN 3.6 G/DL (3.2-5.2); ALKALINE PHOSPHATASE 90 U/L (46-116); ALT/SGPT 33 U/L (7.0-40); AST/SGOT 18 U/L (<34); BILIRUBIN,DIRECT 0.1 MG/DL (<0.4); BILIRUBIN,TOTAL 0.5 MG/DL (0.3-1.2); BLOOD UREA NITROGEN 6 MG/DL (9-23); CALCIUM LEVEL 9.2 MG/DL (8.5-10.1); CARBON DIOXIDE LEVEL 28 MMOL/L (20-31); CHLORIDE LEVEL 106 MMOL/L (98-107); CREATININE FOR GFR 0.59 MG/DL (0.55-1.30); GLOMERULAR FILTRATION RATE > 60.0 (>51); GLUCOSE, FASTING 89 MG/DL (60-100); POTASSIUM SERUM 3.9 MMOL/L (3.5-5.1); SODIUM LEVEL 138 MMOL/L (136-145); TOTAL PROTEIN 6.6 G/DL (5.7-8.2)
[2024-02-10 17:48] LABS: HCG, SERUM QUALITATIVE NEGATIVE (NEGATIVE)
[2024-02-10] MEDS ORDERED: ISOVUE-370 76% 100ML VIAL As Ordered ONE (18:25)
[2024-02-10] MEDS: ACETAMINOPHEN *IV* 1,000 MG in IV 1 EA IV ONE (18:44)
[2024-02-10] MEDS: cefTRIAXone SOD 1 GM in D5W MINI-BAG PLUS 50 ML IV ONE (18:56)
[2024-02-10] MEDS ORDERED: CIPR-249 PO (20:08)
[2024-02-10] MEDS ORDERED: METR-265 PO (20:08)
[2024-02-10 20:14] VITALS: BP 114/67; TEMP 96.5; O2SAT 97
== END 2024-02-10 20:27 | disposition home or self-care (01) ==
LOC: M ED 15:52
DX: K52.9 Noninfective gastroenteritis and colitis, unspecified (principal); N39.0 Urinary tract infection, site not specified; E11.9 Type 2 diabetes mellitus without complications; E78.5 Hyperlipidemia, unspecified; G43.909 Migraine, unspecified, not intractable, without status migrainosus; F17.210 Nicotine dependence, cigarettes, uncomplicated; Z88.8 Allergy status to other drugs, medicaments and biological substances; Z79.2 Long term (current) use of antibiotics; Z79.899 Other long term (current) drug therapy
CPT/HCPCS: 74177; 80048; 80076; 81001; 83690; 84703; 85025; 87088; 87186; 96365; 99284; J0131; J0696; Q9967

== ENCOUNTER 2024-04-12 09:29 | Day surgery (SDC) | payer OTHER ==
[~2024-04-12] VITALS: Ht 157.5 cm; Wt 53.2 kg
[~2024-04-12 09:29] MED LIST changes: +CIPR-249 PO; +METR-265 PO; +PANT40TA29 PO
[2024-04-12] MEDS: NS 1,000 ML IV ONE (09:41)
[2024-04-12] MEDS ORDERED: propofoL 200 MG/20 ML VIAL As Ordered ONE (10:44)
[2024-04-12 11:37] VITALS: TEMP 97.2
[2024-04-12 12:27] VITALS: BP 120/56; O2SAT 100
== END 2024-04-12 12:28 | disposition home or self-care (01) ==
LOC: M OPP 09:29
PROVIDERS: ATTEND Surgery
DX: Z12.11 Encounter for screening for malignant neoplasm of colon (principal); E78.00 Pure hypercholesterolemia, unspecified; M19.90 Unspecified osteoarthritis, unspecified site; F41.9 Anxiety disorder, unspecified; G43.909 Migraine, unspecified, not intractable, without status migrainosus; F17.210 Nicotine dependence, cigarettes, uncomplicated; Z88.6 Allergy status to analgesic agent; Z79.899 Other long term (current) drug therapy

== ENCOUNTER → 2024-04-19 | Outpatient (CLI) | payer OTHER | LOC: M PLAIMG 12:34 | PROVIDERS: ATTEND Physician Assistant Medical | DX: M25.551 Pain in right hip (principal); M25.552 Pain in left hip ==

== ENCOUNTER → 2024-04-26 | Outpatient (CLI) | payer OTHER | LOC: M WHC 12:16 | PROVIDERS: ATTEND Physician Assistant Medical | DX: Z12.31 Encounter for screening mammogram for malignant neoplasm of breast (principal) ==

== ENCOUNTER 2024-08-19 10:06 | Emergency (ER) | payer OTHER ==
[~2024-08-19] VITALS: Ht 157.5 cm; Wt 55.0 kg
[~2024-08-19 10:06] MED LIST changes: -DOXY-323 PO; +DOXY-441 PO
[2024-08-19 10:47] LABS: BASO % 0.6 % (0.0-1.0); EOS # 0.2 10^3/uL (0.0-0.5); EOS % 2.8 % (0.0-3.0); HEMATOCRIT 38.8 % (36.0-47.0); HEMOGLOBIN 13.1 g/dl (12.0-15.5); LYMPH % 42.8 % (24.0-44.0); MEAN CORPUSCULAR HEMOGLOBIN 30.4 pg (27.0-33.0); MEAN CORPUSCULAR HGB CONC 33.8 g/dl (32.0-36.5); MONO # 0.5 10^3/uL (0.0-0.8); MONO % 7.7 % (2.0-8.0); NEUTROPHILS # 3.2 10^3/uL (1.5-8.5); PLATELET COUNT, AUTOMATED 262 10^3/uL (150-450); RED BLOOD COUNT 4.31 10^6/uL (4.00-5.40)
[2024-08-19 11:10] LABS: HCG, SERUM QUALITATIVE NEGATIVE (NEGATIVE)
[2024-08-19 11:11] LABS: LIPASE 54 U/L (12-53)
[2024-08-19 11:13] LABS: ALBUMIN 3.3 G/DL (3.2-5.2); ALKALINE PHOSPHATASE 88 U/L (35-104); ALT/SGPT 25 U/L (7.0-40); AST/SGOT 16 U/L (<34); BILIRUBIN,DIRECT < 0.1 MG/DL (<0.4); BILIRUBIN,TOTAL 0.2 MG/DL (0.3-1.2); BLOOD UREA NITROGEN 17 MG/DL (9-23); CALCIUM LEVEL 9.7 MG/DL (8.5-10.1); CARBON DIOXIDE LEVEL 28 MMOL/L (20-31); CHLORIDE LEVEL 108 MMOL/L (98-107); CREATININE FOR GFR 0.58 MG/DL (0.55-1.30); GLOMERULAR FILTRATION RATE > 60.0 (>51); GLUCOSE, FASTING 98 MG/DL (60-100); POTASSIUM SERUM 4.3 MMOL/L (3.5-5.1); SODIUM LEVEL 141 MMOL/L (136-145); TOTAL PROTEIN 6.9 G/DL (5.7-8.2)
[2024-08-19 12:46] LABS: KETONE, URINE AUTO RFX NEGATIVE (NEGATIVE); LEUKOCYTE ESTERASE UR AUTO RFX TRACE (NEGATIVE); MUCUS, URINE RFX SMALL (NEGATIVE); NITRITE, URINE AUTO RFX POSITIVE (NEGATIVE); RBC, URINE AUTO RFX 3 /HPF (0-3); SQUAM EPITHELIAL CELL UR AURFX 3 /HPF (0-6); WBC, URINE AUTO RFX 9 /HPF (0-3)
[2024-08-19] MEDS ORDERED: NITR100C3 PO (13:03)
[2024-08-19 13:19] VITALS: BP 115/60; TEMP 97; O2SAT 98
== END 2024-08-19 13:21 | disposition home or self-care (01) ==
LOC: M ED 10:06
DX: N39.0 Urinary tract infection, site not specified (principal); F17.210 Nicotine dependence, cigarettes, uncomplicated; Z88.8 Allergy status to other drugs, medicaments and biological substances; Z79.899 Other long term (current) drug therapy

== ENCOUNTER → 2024-09-17 | Outpatient (CLI) | payer OTHER ==
[~2024-09-17] MED LIST changes: +NITR100C3 PO
== END ==
LOC: M PLAIMG 10:07
PROVIDERS: ATTEND Physician Assistant Medical
DX: M54.2 Cervicalgia (principal)

== ENCOUNTER 2024-09-24 10:24 | Emergency (ER) | payer OTHER ==
[~2024-09-24] VITALS: Ht 160 cm; Wt 53.0 kg
[2024-09-24] MEDS ORDERED: FLUTISP (11:45)
[2024-09-24] MEDS ORDERED: BACL5TAB2 (11:45)
[2024-09-24] MEDS ORDERED: SIME80CH6 (11:45)
[2024-09-24] MEDS: KETOROLAC 30 MG/ML 1ML VIAL IV ONE ×2 (15:35→18:25)
[2024-09-24] MEDS: diazePAM 10MG/2ML SYRINGE IV ONE (15:35)
[2024-09-24] MEDS: methylPREDNISolone 125MG 2ML VIAL IV ONE (15:35)
[2024-09-24] MEDS ORDERED: ACET650T15 PO (16:46)
[2024-09-24] MEDS ORDERED: MEDR4PAK PO (16:46)
[2024-09-24 17:09] VITALS: BP 139/74; TEMP 96.6; O2SAT 98
[2024-09-24] MEDS: METHOCARBAMOL 1,000 MG/10 ML VIAL IV ONE (18:25)
== END 2024-09-24 18:58 | disposition home or self-care (01) ==
LOC: M ED 10:24
DX: M62.830 Muscle spasm of back (principal); F17.210 Nicotine dependence, cigarettes, uncomplicated; Z88.6 Allergy status to analgesic agent; Z79.1 Long term (current) use of non-steroidal anti-inflammatories (NSAID); Z79.2 Long term (current) use of antibiotics; Z79.899 Other long term (current) drug therapy
CPT/HCPCS: 96374; 96375; 96376; 99284; J1885; J2800; J2919; J3360

== ENCOUNTER → 2024-09-27 | Outpatient (CLI) | payer OTHER ==
[~2024-09-27] MED LIST changes: +ACET650T15 PO; +BACL5TAB2; +FLUTISP; +MEDR4PAK PO; +SIME80CH6
[2024-09-27 17:47] LABS: BASO % 0.3 % (0.0-1.0); EOS # 0.1 10^3/uL (0.0-0.5); EOS % 0.5 % (0.0-3.0); HEMATOCRIT 44.5 % (36.0-47.0); HEMOGLOBIN 14.7 g/dl (12.0-15.5); LYMPH % 37.2 % (24.0-44.0); MEAN CORPUSCULAR HEMOGLOBIN 30.6 pg (27.0-33.0); MEAN CORPUSCULAR VOLUME 92.7 fl (80.0-96.0); MONO # 0.9 10^3/uL (0.0-0.8); MONO % 8.2 % (2.0-8.0); NEUTROPHILS # 5.7 10^3/uL (1.5-8.5); NEUTROPHILS % 53.3 % (36.0-66.0); PLATELET COUNT, AUTOMATED 326 10^3/uL (150-450); WHITE BLOOD COUNT 10.7 10^3/uL (4.0-10.0)
[2024-09-27 18:17] LABS: ERYTHROCYTE SEDIMENTATION RATE 33 mm/hr (0-30)
== END ==
LOC: M PLAIMG 14:44
PROVIDERS: ATTEND Physician Assistant Medical
DX: M62.830 Muscle spasm of back (principal)

== ENCOUNTER → 2024-10-23 | Outpatient (CLI) | payer OTHER | LOC: M RAD 07:29 | PROVIDERS: ATTEND Physician Assistant Medical | DX: M62.830 Muscle spasm of back (principal); R61 Generalized hyperhidrosis; G60.9 Hereditary and idiopathic neuropathy, unspecified ==

== ENCOUNTER → 2025-01-15 | Outpatient (CLI) | payer OTHER ==
[~2025-01-15] MED LIST changes: -ACE65ERTAB PO; +ACET-1515 PO; +ACET-1593 PO; -ACET650T15 PO; +LIDO1ADH93 TD; -LIDO5DIS41 TD
== END ==
LOC: M RAD 14:41
PROVIDERS: ATTEND Physician Assistant Medical
DX: R31.9 Hematuria, unspecified (principal)

== ENCOUNTER → 2025-04-25 | Outpatient (REF) | payer OTHER ==
[~2025-04-25] MED LIST changes: -EZET10TA21; +EZET10TA57; -IBUP-1022 PO; +IBUP600T42 PO
[2025-04-25 18:55] LABS: ALT/SGPT 33 U/L (7.0-40); AST/SGOT 29 U/L (<34); CALCIUM LEVEL 10.1 MG/DL (8.5-10.1); CARBON DIOXIDE LEVEL 30 MMOL/L (20-31); CHLORIDE LEVEL 104 MMOL/L (98-107); CHOLESTEROL LEVEL 324 MG/DL (<200); CHOLESTEROL RISK RATIO 5.29 (<5); CREATININE FOR GFR 0.60 MG/DL (0.55-1.30); GLOMERULAR FILTRATION RATE > 90.0 (>51); LDL CHOLESTEROL 226.4 MG/DL (<100); NON-HDL-C 262.8 MG/DL; POTASSIUM SERUM 4.1 MMOL/L (3.5-5.1); SODIUM LEVEL 139 MMOL/L (136-145); TRIGLYCERIDES LEVEL 182 MG/DL (<150)
[2025-04-25 18:56] LABS: FREE T4 1.14 NG/DL (0.89-1.76)
[2025-04-25 18:58] LABS: CPK CREATINE PHOSPHOKINASE 126 U/L (34-145)
[2025-04-25 19:56] LABS: ESTIMATED AVERAGE GLUCOSE 126.0 MG/DL (60-110)
== END ==
LOC: M SFHCPLAZ 14:55
PROVIDERS: ATTEND Physician Assistant Medical
DX: E78.49 Other hyperlipidemia (principal); E78.1 Pure hyperglyceridemia; H53.8 Other visual disturbances

== ENCOUNTER 2025-05-11 12:19 | Emergency (ER) | payer OTHER ==
[~2025-05-11] VITALS: Ht 160 cm; Wt 55.5 kg
[2025-05-11] MEDS ORDERED: ATOR1TAB19 PO (12:38)
[2025-05-11 13:20] LABS: KETONE, URINE AUTO RFX NEGATIVE (NEGATIVE); LEUKOCYTE ESTERASE UR AUTO RFX NEGATIVE (NEGATIVE); MUCUS, URINE RFX SMALL (NEGATIVE); NITRITE, URINE AUTO RFX NEGATIVE (NEGATIVE); RBC, URINE AUTO RFX 1 /HPF (0-3); SQUAM EPITHELIAL CELL UR AURFX 0 /HPF (0-6); WBC, URINE AUTO RFX 6 /HPF (0-3)
[2025-05-11 13:22] LABS: BASO # 0.0 10^3/uL (0.0-0.2); BASO % 0.6 % (0.0-1.0); EOS # 0.1 10^3/uL (0.0-0.5); EOS % 1.7 % (0.0-3.0); LYMPH # 2.5 10^3/uL (1.5-5.0); LYMPH % 37.4 % (24.0-44.0); MONO # 0.4 10^3/uL (0.0-0.8); MONO % 5.9 % (2.0-8.0); NEUTROPHILS # 3.6 10^3/uL (1.5-8.5); NEUTROPHILS % 54.2 % (36.0-66.0); PLATELET COUNT, AUTOMATED 253 10^3/uL (150-450)
[2025-05-11 13:48] LABS: CALCIUM LEVEL 9.5 MG/DL (8.5-10.1); CARBON DIOXIDE LEVEL 28 MMOL/L (20-31); CHLORIDE LEVEL 107 MMOL/L (98-107); CREATININE FOR GFR 0.58 MG/DL (0.55-1.30); GLOMERULAR FILTRATION RATE > 90.0 (>51); POTASSIUM SERUM 4.5 MMOL/L (3.5-5.1); SODIUM LEVEL 142 MMOL/L (136-145)
[2025-05-11 13:52] LABS: HCG, SERUM QUALITATIVE NEGATIVE (NEGATIVE)
[2025-05-11] MEDS ORDERED: HOME MED LIST COMPLETE! XX SCH (16:50)
[2025-05-11] MEDS ORDERED: PYRI1TAB5 PO (17:56)
[2025-05-11] MEDS ORDERED: CIPR-249 PO (17:56)
[2025-05-11 18:15] VITALS: BP 111/59
[2025-05-11 18:16] VITALS: TEMP 96.9; O2SAT 99
[2025-05-11] MEDS: CIPROFLOXACIN 500 MG TABLET PO ONE (18:18)
== END 2025-05-11 18:24 | disposition home or self-care (01) ==
LOC: M ED 12:19
DX: N30.01 Acute cystitis with hematuria (principal); E78.5 Hyperlipidemia, unspecified; Z88.6 Allergy status to analgesic agent; Z79.2 Long term (current) use of antibiotics; Z79.899 Other long term (current) drug therapy

== ENCOUNTER → 2025-06-26 | Outpatient (REF) | payer OTHER ==
[~2025-06-26] MED LIST changes: +PYRI1TAB5 PO
[2025-06-26 13:44] LABS: APPEARANCE, URINE HAZY (CLEAR); BACTERIA, URINE AUTO 1+ (NEGATIVE); BILIRUBIN, URINE AUTO NEGATIVE (NEGATIVE); BLOOD, URINE BLOOD 1+ (NEGATIVE); GLUCOSE, URINE (UA) AUTO NEGATIVE (NEGATIVE); KETONE, URINE AUTO NEGATIVE (NEGATIVE); LEUKOCYTE ESTERASE, URINE AUTO 1+ (NEGATIVE); MUCUS, URINE SMALL (NEGATIVE); NITRITE, URINE AUTO POSITIVE (NEGATIVE); PROTEIN, URINE AUTO NEGATIVE (NEGATIVE); RBC, URINE AUTO 2 /HPF (0-3); SPECIFIC GRAVITY URINE AUTO 1.013 (1.002-1.035); SQUAMOUS EPITHELIAL CELL UR AU 1 /HPF (0-6); UROBILINOGEN, URINE AUTO 0.2 mg/dL (0.0-2.0); WBC, URINE AUTO 24 /HPF (0-3)
== END ==
LOC: M SFHCPLAZ 13:01
PROVIDERS: ATTEND Physician Assistant Medical
DX: R35.0 Frequency of micturition (principal)

== ENCOUNTER → 2025-07-01 | Outpatient (CLI) | payer OTHER ==
[~2025-07-01] MED LIST changes: +ACET-1387 PO; -ACET-1593 PO
== END ==
LOC: M PLALAB 16:00 → M PLAIMG 16:00
PROVIDERS: ATTEND Physician Assistant Medical
DX: M25.511 Pain in right shoulder (principal); M47.812 Spondylosis without myelopathy or radiculopathy, cervical region; M47.814 Spondylosis without myelopathy or radiculopathy, thoracic region